=== PATIENT | male | born 1950 | race Caucasian/White ===

== ENCOUNTER 2023-11-21 13:43 | Inpatient (IN) | payer MEDICARE, OTHER, SELFPAY ==
[2023-11-21] VITALS (8 sets, daily range): BP systolic 114–152; BP diastolic 62–95; BMI 28.9; BMI 30.4
--- NOTE | 2023-11-21 10:25 | ED.GENMED ---
History of Present Illness
General
Chief Complaint: Breathing Problem
Source: patient
Time Seen by Provider: 11/21/23 10:16
Travel History
Have you had any contact with someone who has COVID-19?: No
Do you have any symptoms of coronavirus? Fever > 100 degrees, chills, cough, shortness of breath, sore throat, loss of taste or smell, muscle aches, or headache?: Yes
Symptoms:: see note
History of Present Illness
History of Present Illness:
73-year-old male presents to the emergency room complaint of shortness of breath. Patient has history of COPD. Over the past few days he has been having increased wheezing and increased coughing. His cough is productive of mucus. He does see a
chef assistant. He awoke this morning with severe shortness of breath and struggling to breathe. He contacted his chef assistant who recommended he come to the emergency room. Patient does not believe that he had a fever. He denies any sick
contacts. No chest pain
Past History
Past History
ED Past Medical History: CAD, CVA, GERD, Hypercholesterolemia, IDDM, ND and Other (spinal stenosis, Vertigo, PNA)
ED Past Surgical History: Cardiac (Stents X 2); Negative Bowel resection (denies a bowel resection or 25' being removed. said that this did not happen)
Social History
Tobacco: Former smoker
Alcohol: None
Drug: None
Personal:
Living: with family
Phy Exam
Physical Exam
Physical Exam:
General: Awake, Alert, Oriented X3. Moderate increased work of breathing
Vitals: Tachypneic
Head: Atraumatic
Eyes: Pupils equal, EOMI
Throat: Airway intact, no exudates
Neck: Trachea midline
Lungs: Decreased breath sounds, expiratory wheezing bilaterally
Heart: Regular rate, no murmurs
Abd: Soft, Nontender, No pulsatile mass
Neuro: Nonfocal
Skin: Warm, dry, no rash
Extremities: pulses equal b/l, no edema
Scores
Heart Failure Risk
Heart Failure Risk Score: Not Applicable
Course
Orders/Labs/Results
Orders:
Orders
11/21/23 10:13
Ipratropium/Albuterol Sulfate [Duoneb] 3 ml .ROUTE .STK-MED ONE
11/21/23 10:18
CMP [Comprehensive Metabolic Panel] Urgent
COVID-19 Antigen Urgent
Source: Nasal Swab
Complete Blood Count/With Diff Urgent
Lactic Acid Urgent
Influenza A+B Rapid Molecular Urgent
JUAN M Source: Nasal Swab
Specimen Description:
11/21/23 10:24
CR Chest - 2 Views Urgent
Comment:
Reason For Exam: sob, productive cough
11/21/23 12:45
Ipratropium/Albuterol Sulfate [Duoneb] 3 ml INH R NOW ONE
11/21/23 12:46
Azithromycin 500 mg/250 ml [Zithromax Infusion] 500 mg in 250 ml IV NOW
Ipratropium/Albuterol Sulfate [Duoneb] 3 ml .ROUTE .STK-MED ONE
11/21/23 13:22
Admit/Transfer Patient As Directed
Co-Sign Provider:
Level of Care: Inpatient admission
Assign to:: Medical/Surgical
Physician / Group: sarwat long
Diagnosis: acute on chronic copd exac
Reason for Hospitalization: acute on chronic copd exac
Expected length of stay greater than two midnights?: Yes
ELOS- Estimated Length of Stay in days: 4
I certify the patient meets the requirements for IP care: Yes
Code Status As Directed
Resuscitation Status: Do not resuscitate
Reached after discussion with pt or family/Healthcare POA: Yes
Based on pt advanced directive or healthcare POA form: Yes
Decision communicated with: Per and patient also states on file here in hospital
DNR Bracelet Application ONCE
11/21/23 13:31
PULMONARY CONSULT Routine
Consulting Provider: Edgar Berger
Was physician already notified: Yes
Reason for consult: copd with bronchitis component
11/21/23 13:33
Add On- LAB Urgent
Tests Added?: troponin
11/21/23 13:45
Sputum Culture [Respiratory Culture/Gram Stain] Routine
JUAN M Source: Sputum
Specimen Description:
Date Specimen was Collected: 11/21/23
Time Specimen was Collected: 13:42
11/21/23 16:00
Troponin I Q6H
Ipratropium/Albuterol Sulfate [Duoneb] 3 ml INH R QID
11/21/23 16:30
Insulin Aspart Corrective Low [Novolog Flexpen-Low Resistance] See Protocol SC AC
insulin lispro [Humalog U-100 Insulin] 10 sliding scale dose SC AC
11/21/23 22:00
Troponin I Q6H
Abnormal Lab Results
11/21/23
10:18
RBC 4.51 L 10^6/uL
(4.70-6.10)
Hgb 12.1 L g/dL
(13.0-18.0)
Hct 38.3 L %
(39.0-52.0)
MCH 26.8 L pg
(27.0-31.0)
MCHC 31.6 L g/dL
(33.0-37.0)
MPV 11.0 H fL
(7.4-10.4)
Abs Immat Gran (auto) 0.1 H 10^3/uL
(0-0.05)
Absolute Eos (auto) 1.9 H 10^3/uL
(0-0.7)
Eosinophils % 19.8 H %
(0-6)
Glucose 237 H mg/dl
(70-99)
Lactic Acid 2.4 H mmol/L
(0.7-2.0)
11/21/23 10:18
11/21/23 10:18
Vital Signs
Initial and Last Documented VS:
Initial Vital Signs
Temp Pulse Resp Pulse Ox
97.5 F 92 21 94
11/21/23 10:11 11/21/23 10:11 11/21/23 10:11 11/21/23 10:11
Last Documented Vital Signs
Temp Pulse Resp BP Pulse Ox
97.5 F 94 22 133/84 96
11/21/23 10:11 11/21/23 15:00 11/21/23 15:00 11/21/23 13:00 11/21/23 12:00
MDM/Problems Addressed
Differential Diagnosis Includes:
pneumonia, copd exacerbation, acute bronchitis
MDM/Problems Addressed:
Patient presents with increasing shortness of breath. He does not use oxygen at home but does have hypoxia here requiring oxygen. Patient treated with nebs and steroids. He received Solu-Medrol in the prehospital setting. Patient feels mildly
better but still quite symptomatic he will require hospitalization for continued treatment of a COPD exacerbation.
Acute Exacerbation and/or Progression of Chronic Illness: COPD
*Pulse Oximetry
Patient hypoxic: yes
*Critical Care Note
Total Time (30-74mins, 75-104mins- exclusive of procedures): Not Applicable
Data Reviewed
Review of Other/Old Records Reveals: Progress Notes and Discharge Summary (From hospitalization here on August 16)
Patient Management
Social determinants of health affecting care: Living situation and Strong social support
ED Attending Note
-
Portions of this chart may have been created with voice recognition software.� Occasional wrong word or��sound alike� substitutions may have occurred due to the inherent limitations of voice recognition software.
Discharge Plan
Departure
Patient Disposition: Admit
Date of Disposition: 11/21/23
Time of Disposition: 12:47
Admit to: Med/Surg
Presentation/result/management discussed w/ accepting MD/DO: Hospitalist
Condition: Fair
Discharge Problem:
Asthma with COPD with exacerbation
Interventions
Interventions:
*Risk Screen - Suicide Last Done: 11/21/23 10:12
*General Assessment Last Done: 11/21/23 11:36
*Neglect/Abuse Screening Last Done: 11/21/23 10:12
ED- Fall Risk Assessment Last Done: 11/21/23 12:57
*ED COVID-19 Vaccine History Last Done: 11/21/23 10:16
ED- Cardiac Assessment Last Done: 11/21/23 11:08
ED- Pulmonary Assessment Last Done: 11/21/23 10:16
[2023-11-21 10:40] LABS: % Basophils 0.2 % (0-2); % Eosinophils 19.8 % (0-6); % Immature Granulocytes 0.5 % (0-0.5); % Lymphocytes 21.4 % (20.5-51.1); % Monocytes 5.6 % (1.7-9.3); % Neutrophils 52.5 % (42.2-75.2); Absolute Eosinophils 1.9 10^3/uL (0-0.7); Absolute Immature Granulocytes 0.1 10^3/uL (0-0.05); Absolute Monocytes 0.5 10^3/uL (0.1-0.6); Hematocrit 38.3 % (39.0-52.0); Hemoglobin 12.1 g/dL (13.0-18.0); Mean Corp Hgb Conc. 31.6 g/dL (33.0-37.0); Mean Corpuscular Hgb 26.8 pg (27.0-31.0); Mean Corpuscular Volume 84.9 fL (80.0-94.0); Nucleated Red Blood Cells % 0 % (-); Platelet Count 292 10^3/uL (130-400); Red Blood Cell Count 4.51 10^6/uL (4.70-6.10); Red Cell Dist. Width 14.5 % (11.5-14.5); White Blood Cell Count 9.5 10^3/uL (4.8-10.8)
[2023-11-21 10:54] LABS: ALT (SGPT) 18 U/L (0-50); AST (SGOT) 20 U/L (17-59); Albumin 4.2 g/dl (3.5-5.0); Alkaline Phosphatase 96 U/L (38-126); Blood Urea Nitrogen 12 mg/dl (9-20); Carbon Dioxide 26 mmol/L (22-30); Chloride 106 mmol/L (98-107); Estimated Creatinine Clearance 82 ml/min; Glucose 237 mg/dl (70-99); Lactic Acid 2.4 mmol/L (0.7-2.0); Potassium 3.7 mmol/L (3.5-5.1); Sodium 139 mmol/L (135-145); Total Bilirubin 0.7 mg/dl (0.2-1.3); eGFR > 60.00
[2023-11-21 10:56] LABS: COVID-19 Antigen Negative (Negative)
[2023-11-21] MEDS: DUONEB 3 ML INH ×3 (12:49→20:02)
[2023-11-21] MEDS: ZITHROMAX INFUSION 250 IV (12:55)
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
[2023-11-21 15:15] LABS: Troponin I < 0.012 ng/ml
[2023-11-21 16:07] LABS: Glucose - Point of Care 380 mg/dl (70-99)
[2023-11-21] MEDS: NOVOLOG FLEXPEN-LOW RESISTANCE 5 UNITS SC (16:38)
[2023-11-21 16:46] LABS: Troponin I < 0.012 ng/ml
[2023-11-21 17:09] LABS: Glucose - Point of Care 387 mg/dl (70-99)
--- NOTE | 2023-11-21 17:42 | CON.PUL ---
Consultation
Consultation Request
Date/Time Consultation Requested: 11/21/2023 - 133
Date/Time Consultation Performed: 11/21/2023 - 160
Requesting Provider: Judit BA
Performing Provider: Dr. Berger
Reason for Consultation: SOB
Medical History
-
Chief Complaint: SOB
History of Present Illness:
73-year-old male with a past medical history of COPD on Advair HFA 230mcg, DM type II, former tobacco use started, history of SHARA intolerant to CPAP who presents with shortness of breath. Patient recently saw me in the office on 11/15/2023 and he was
complaining of shortness of breath at that time. I stepped up his treatment by stopping his budesonide and startied Advair HFA 230mcg and I gave him a sample of Breztri. We also discussed biologic therapy with Dupixent/Fasenra/Nucala given his
history of significant eosinophilia. Blood work obtained here shows WBC 9.5, eosinophilia of 1900, and CXR showed no acute cardiopulmonary process. He was started on Solu-Medrol 40mg IV q8hr as well as DuoNebs and now pulmonary consulted for
further recommendations/management.
When I saw the patient he was in bed, in no acute distress, saying that he feels 'hot' after receiving his steroids. He wants to 'peel off his skin,' and he never felt like that normally. I asked if he felt this in the past when he received
steroids and he was unable to answer me. He currently feels anxious and is asking for something to help with this. He denies chest pain, headache, abdominal pain, fevers or chills.
PMHx: COPD, DM type II, history of CVA, former tobacco use disorder
PSHx: Metal judy in the right lower extremity, right hip pin placement, coronary stents (2022)
Past Medical History
Past Medical History: Other (above as per HPI)
Past Surgical History: Other (above as per HPI)
Social History
Tobacco: Former Smoker (Quit smoking in November 2022 with >60-ctvi-xhok history)
Alcohol: None
Drug: None
Family History
Family History: CAD (Father) and Diabetes (Mother)
Allergies / Home Medications
Allergies
Allergy/AdvReac Type Severity Reaction Status Date / Time
ciprofloxacin Allergy Shortness Verified 09/24/23 14:29
of Breath
lactase [From Dairy Aid] Allergy Anaphylaxis Verified 09/24/23 14:29
procaine [From Novocain] Allergy Shortness Verified 09/24/23 14:29
of Breath
Quinolones Allergy Shortness Verified 09/24/23 14:29
of Breath
Home Medications
Medication Instructions Recorded Confirmed Last Taken Type
cholecalciferol (vitamin D3) 50 2,000 unit PO DAILY Supplement 04/17/23 11/21/23 11/20/23 History
mcg (2,000 unit) tablet (Vitamin
D3)
icosapent ethyl 1 gram capsule 2 g PO BID High Cholesterol 04/17/23 11/21/23 11/20/23 History
(Vascepa)
pantoprazole 20 mg tablet,delayed 20 mg PO DAILY Gastrointestinal 04/17/23 11/21/23 11/20/23 History
release Issue
aspirin 81 mg chewable tablet 81 mg PO DAILY Blood Clot 04/18/23 11/21/23 11/20/23 History
Prevention/Tx
atorvastatin 80 mg tablet 80 mg PO HS High Cholesterol 04/18/23 11/21/23 11/20/23 History
metoprolol succinate 25 mg 25 mg PO DAILY #90 tabs 04/20/23 11/21/23 11/20/23 Rx
tablet,extended release 24 hr
ipratropium 0.5 mg-albuterol 3 mg 3 ml inhalation R Q4HPRN PRN 08/16/23 11/21/23 Unknown Rx
(2.5 mg base)/3 mL nebulization sob/wheezing 30 days #90 mL
soln
albuterol sulfate 90 mcg/actuation 2 puff inhalation R QIDPRN PRN sob 11/21/23 11/21/23 Unknown History
aerosol inhaler (ProAir HFA)
clopidogrel 75 mg tablet (Plavix) 75 mg PO DAILY 11/21/23 11/21/23 11/20/23 History
fluticasone propionate 230 2 puff inhalation R BID 11/21/23 11/21/23 11/20/23 History
mcg-salmeterol 21 mcg/actuation
HFA inhaler (Advair HFA)
insulin degludec 100 unit/mL (3 50 unit SC HS 11/21/23 11/21/23 11/20/23 History
mL) subcutaneous pen (Tresiba
FlexTouch U-100 insulin)
insulin lispro 100 unit/mL 10 - 12 sliding scale dose SC AC 11/21/23 11/21/23 Unknown History
subcutaneous solution (Humalog
U-100 Insulin)
Review of Systems
-
History Source: Patient
All other systems: Negative unless noted (12 point ROS performed and is negative unless mentioned above.)
Vitals / Labs / Diagnostic Testing
Vital Signs
Temp Pulse Resp BP Pulse Ox
97.5 F 93 28 133/84 96
11/21/23 10:11 11/21/23 16:30 11/21/23 16:30 11/21/23 13:00 11/21/23 12:00
Lab Data
11/21/23 10:18
11/21/23 10:18
Microbiology
11/21/23 13:45 Sputum Respiratory Culture - Final
11/21/23 13:45 Sputum Gram Stain - Final
11/21/23 10:18 Nasal Swab Influenza Types A & B (ALEM) - Final
Negative for Influenza A & B, NAAT
Negative results must be combined with clinical observations
and patient history.
Nucleic Acid Amplification test (NAAT)performed on the
[employer] platform.
Diagnostic Testing:
Physical Exam
-
HEENT: Normocephalic and Anicteric
Cardiovascular: S1/S2 and Peripheral Edema (negative)
Respiratory: Wheeze (bilaterally), Rales (negative), Rhonchi (negative) and Other (coarse BS heard bilaterally)
GI: Soft, Non Distended and Non Tender
Neurology: Awake and Alert
Skin: Warm and Dry
General: Comfortable and Chills (negative)
Assessment
-
Assessment: 73-year-old male with a past medical history of COPD on Advair HFA 230mcg, DM type II, former tobacco use started, history of SHARA intolerant to CPAP who presents with shortness of breath. Patient recently saw me in the office on
11/15/2023 and he was complaining of shortness of breath at that time. I stepped up his treatment by stopping his budesonide and startied Advair HFA 230mcg and I gave him a sample of Breztri. We also discussed biologic therapy with
Dupixent/Fasenra/Nucala given his history of significant eosinophilia. Blood work obtained here shows WBC 9.5, eosinophilia of 1900, and CXR showed no acute cardiopulmonary process. He was started on Solu-Medrol 40mg IV q8hr as well as DuoNebs and
now pulmonary consulted for further recommendations/management.
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
Impression:
#Acute COPD exacerbation with severe hypereosinophilia
#Lactic acidosis
#Elevated troponin - likely due to demand ischemia (neg x2)
#Former tobacco use disorder
#Anxiety
Plan:
- Continue systemic steroids and closely monitor BG with goal BG 140-180mg/dL
- Titrate O2 flow rate to maintain SpO2 >88% and <96%
- Trend lactate level until <2mmol/L
- Maintain MAP>65
- He needs triple therapy but he was getting bronchospasms with nebulized budesonide --> start Symbicort 160mcg and Spiriva with Albuterol QID
- If he becomes tachy then change albuterol --> xopenex
- Continue Azithromycin 250mg daily, and he should be DC'd home on this as well
- Once he is discharged, we need to initiate biologic therapy --> will try to initiate Nucala vs Fasenra given his severe hyper-eosinophilia
- Start prn ativan for anxiety; and start prn morphine for air hunger/dyspnea --> pt is adamant about getting this and he gets severe anxious episodes quit often
- Check IgE titer; trend eos (will likely go down to zero while on steroids)
- DVT ppx
Pulmonary service will continue to follow along.
Code Status: DNR
A high level of medical decision making was used for this encounter today.
Data:
CXR 11-21-2023 - compared to prior CXR from 09/24/2023
Impression: No significant change. No acute pulmonary process.
TTE 09-19-2023:
�Normal LV size with low normal systolic function.
�Left ventricular ejection fraction is 50-55% by visual assessment.
�Normal regional wall motion.
�Mild-moderate concentric left ventricular hypertrophy.
�Stage I diastolic dysfunction suggestive of abnormal relaxation.
�Normal right ventricular size and function.
�Mild mitral regurgitation.
�Compared to prior on April 18, 2023, LV function has improved and MR is now
�mild from moderate.
Outpatient [facility] Data:
�Chest x-ray 08/14/23.� No primary small opacification or�vascular congestion.
��������
��������CXR 09-24-2023:��
��������Impression:
1.� Mild chronic elevation of the anterior right hemidiaphragm
2.� No radiographic evidence for pneumonia, acute pulmonary edema or pleural effusion.�
PFT:
������ COMMENTS:�PFT 09/15/23- Post-BD FVC: 2.52L or 64% (+4% change with BD); Post-BD FEV1: 1.53 or 53% (+19% change with BD); Ratio 53 --> 61 with BD; TLC 5.14 or 78%, DLCO 74%; DLco/VA: 107%.�
LABS:
������ COMMENTS:�Absolute eosinophil count:
1100 (09/24/2023)
1300 (08/14/2023)
900 (04/23/2023)
[2023-11-21] MEDS: SOLU-MEDROL PF 40 MG IV (19:54)
[2023-11-21] MEDS: LOVENOX 40 MG SC (19:55)
[2023-11-21] MEDS: LIPITOR 80 MG PO (21:52)
[2023-11-21] MEDS: MORPHINE SULFATE 2 MG IV (21:52)
[2023-11-21 21:59] LABS: Glucose - Point of Care 406 mg/dl (70-99)
[2023-11-21 22:35] LABS: Glucose 435 mg/dl (70-99)
[2023-11-21 22:37] LABS: Troponin I < 0.012 ng/ml
[2023-11-21] MEDS: NOVOLOG FLEXPEN SC (22:48)
--- NOTE | 2023-11-21 22:48 | PTCARENOTE ---
Blood glucose drawn on patient at bedtime, result was 406. [employer] CHILD WELFARE MANAGER notified and venous blood draw done, result was 435. See MAR for intervention. Per [employer] CHILD WELFARE MANAGER, recheck blood glucose at 0300
[2023-11-21] MEDS: LANTUS 0.5 UNITS SC (23:05)
[2023-11-21] MEDS: NOVOLOG FLEXPEN 6 UNITS SC (23:13)
[2023-11-22] MEDS: SOLU-MEDROL PF 40 MG IV ×3 (01:15→21:06)
[2023-11-22 02:53] LABS: Glucose - Point of Care 317 mg/dl (70-99)
[2023-11-22] MEDS: NOVOLOG FLEXPEN 4 UNITS SC (03:08)
[2023-11-22 07:00] VITALS: BP 129/80
[2023-11-22] MEDS: DUONEB 3 ML INH ×2 (07:21→11:34)
[2023-11-22] MEDS: SYMBICORT 160/4.5 MCG INHALER 2 PUFF INH ×2 (07:21→19:13)
[2023-11-22] MEDS: SPIRIVA RESPIMAT 2.5 MCG INH ×2 (07:22→07:28)
[2023-11-22 08:29] LABS: Glucose - Point of Care 297 mg/dl (70-99)
[2023-11-22 08:30] LABS: % Basophils 0.1 % (0-2); % Eosinophils 0.1 % (0-6); % Immature Granulocytes 0.4 % (0-0.5); % Lymphocytes 10.3 % (20.5-51.1); % Monocytes 5.8 % (1.7-9.3); % Neutrophils 83.3 % (42.2-75.2); Absolute Immature Granulocytes 0.1 10^3/uL (0-0.05); Absolute Lymphocytes 1.3 10^3/uL (1.2-3.4); Absolute Monocytes 0.7 10^3/uL (0.1-0.6); Absolute Neutrophils 10.2 10^3/uL (1.4-6.5); Hematocrit 34.7 % (39.0-52.0); Hemoglobin 11.1 g/dL (13.0-18.0); Mean Corpuscular Hgb 26.3 pg (27.0-31.0); Mean Corpuscular Volume 82.2 fL (80.0-94.0); Nucleated Red Blood Cells % 0 % (-); Platelet Count 292 10^3/uL (130-400); Red Blood Cell Count 4.22 10^6/uL (4.70-6.10); Red Cell Dist. Width 13.9 % (11.5-14.5); White Blood Cell Count 12.3 10^3/uL (4.8-10.8)
--- NOTE | 2023-11-22 08:33 | W.PN.PUL3 ---
Today's Communication / Plan
-
Continue Solu-merol --> wean down to 40mg IV q12hr today
Continue triple inhaler therapy with albuterol QID
Follow up respiratory Cx (collected 11/20)
Start tessalon perles concomitantly with mucinex to help make his cough more efficient as he gets frequent severe coughing spells
We will continue to follow along
Assessment
-
Assessment: 73-year-old male with a past medical history of COPD on Advair HFA 230mcg, DM type II, former tobacco use started, history of SHARA intolerant to CPAP who presents with shortness of breath. Patient recently saw me in the office on
11/15/2023 and he was complaining of shortness of breath at that time. I stepped up his treatment by stopping his budesonide and startied Advair HFA 230mcg and I gave him a sample of Breztri. We also discussed biologic therapy with
Dupixent/Fasenra/Nucala given his history of significant eosinophilia. Blood work obtained here shows WBC 9.5, eosinophilia of 1900, and CXR showed no acute cardiopulmonary process. He was started on Solu-Medrol 40mg IV q8hr as well as DuoNebs and
now pulmonary consulted for further recommendations/management.
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
Impression:
#Acute COPD exacerbation with hypereosinophilia
#Lactic acidosis - resolved
#Former tobacco use disorder
#Anxiety
Plan:
- Continue systemic steroids and closely monitor BG with goal BG 140-180mg/dL --> I will lower his solu-medrol today to 40mg IV q12hr
- Titrate O2 flow rate to maintain SpO2 >88% and <96%
- Maintain MAP>65
- He needs triple inhaler therapy; would want to give nebulized bronchodilators + ICS but he was getting bronchospasms with nebulized budesonide --> continue Symbicort 160mcg and Spiriva with Albuterol QID, and once he is discharged then willl try
to continue similar regimen - he already has Advair HFA, so can contiue that, and we can start Spiriva respimat 2.5mcg/act on discharge and change his DuoNebs to Nebulized Albuterol QID
- If he becomes tachy then change albuterol --> xopenex
- Continue Azithromycin 250mg daily, and he should be DC'd home on this as well
- Once he is discharged, we need to initiate biologic therapy --> will try to initiate Nucala vs Fasenra given his severe hyper-eosinophilia --> I will arrange this through my office
- Continue prn ativan for anxiety and prn morphine for air hunger/dyspnea --> pt is adamant about getting this and he gets severe anxious episodes quite often, although today he appears much less anxious c/t yesterday
- Follow up IgE titer; trend eos (down to zero s/p steroids)
- DVT ppx: LMWH
Pulmonary service will continue to follow along.
Code Status: DNR
A high level of medical decision making was used for this encounter today.
Data:
CXR 11-21-2023 - compared to prior CXR from 09/24/2023
Impression: No significant change. No acute pulmonary process.
TTE 09-19-2023:
�Normal LV size with low normal systolic function.
�Left ventricular ejection fraction is 50-55% by visual assessment.
�Normal regional wall motion.
�Mild-moderate concentric left ventricular hypertrophy.
�Stage I diastolic dysfunction suggestive of abnormal relaxation.
�Normal right ventricular size and function.
�Mild mitral regurgitation.
�Compared to prior on April 18, 2023, LV function has improved and MR is now
�mild from moderate.
Outpatient [facility] Data:
�Chest x-ray 08/14/23.� No primary small opacification or�vascular congestion.
��������
��������CXR 09-24-2023:��
��������Impression:
1.� Mild chronic elevation of the anterior right hemidiaphragm
2.� No radiographic evidence for pneumonia, acute pulmonary edema or pleural effusion.�
PFT:
������ COMMENTS:�PFT 09/15/23- Post-BD FVC: 2.52L or 64% (+4% change with BD); Post-BD FEV1: 1.53 or 53% (+19% change with BD); Ratio 53 --> 61 with BD; TLC 5.14 or 78%, DLCO 74%; DLco/VA: 107%.�
LABS:
������ COMMENTS:�Absolute eosinophil count:
1100 (09/24/2023)
1300 (08/14/2023)
900 (04/23/2023)
Subjective Data
-
Date of Service:
Date of Service: November 22, 2023
Chief Complaint: Pulmonary Follow Up
Subjective:
Patient seen and evaluated this morning. He looks much better today. Eosinophil count now down to 0 while on IV steroids. at bedside and I answered all of her and the patient's questions. She brought in his home medications for his COPD,
including nebulized DuoNebs, budesonide and Advair HFA. He says that he feels good taking the DuoNebs 4 times a day. He currently denies chest pain, headache, fevers or chills. He was moved out of his room last night as his neighbor had diarrhea
(suspect that he had concerns for C. difficile infection). He occasionally has coughing spells but it is frequently a dry cough.
Review of Systems
General: Other (12 point ROS performed and is negative unless mentioned above.)
Objective Data
Data Reviewed
Vital Signs / I&O / Oxygen:
Vital Signs
Temp Pulse Resp BP Pulse Ox
97.5 F 89 20 129/80 91
11/22/23 07:00 11/22/23 11:36 11/22/23 11:36 11/22/23 07:00 11/22/23 11:36
Intake and Output
11/21/23 11/22/2311/22/24
06:59 06:59 06:59
Intake Total 480 / 480
Balance 480 / 480
SaO2 91
Nasal Cannula flow liters per 2
minute
Physical Exam
General: Respiratory Distress (negative) and Comfortable
HEENT: Normocephalic and Anicteric
Cardiovascular: S1-S2 and Peripheral Edema (negative)
Respiratory: Wheeze (negative), Crackles (negative), Rhonchi (negative), Accessory Resp Muscle Use (negative) and Other (Coarse breath sounds bilaterally)
GI: Soft, Non Distended and Non Tender
Neurology: AO x 3
Skin: Warm and Dry
Labs/Micro/Reports
Lab Data
11/22/23 08:07
11/22/23 08:07
Microbiology
11/22/23 01:24 Nasal Swab Influenza Types A & B (ALEM) - Final
Negative for Influenza A & B, NAAT
Negative results must be combined with clinical observations
and patient history.
Nucleic Acid Amplification test (NAAT)performed on the
[employer] platform.
11/21/23 13:45 Sputum Respiratory Culture - Final
11/21/23 13:45 Sputum Gram Stain - Final
11/21/23 10:18 Nasal Swab Influenza Types A & B (ALEM) - Final
Negative for Influenza A & B, NAAT
Negative results must be combined with clinical observations
and patient history.
Nucleic Acid Amplification test (NAAT)performed on the
[employer] platform.
[2023-11-22 08:47] LABS: Lactic Acid 1.8 mmol/L (0.7-2.0)
[2023-11-22 09:07] LABS: Blood Urea Nitrogen 17 mg/dl (9-20); Calcium 9.3 mg/dl (8.4-10.2); Carbon Dioxide 25 mmol/L (22-30); Chloride 103 mmol/L (98-107); Estimated Creatinine Clearance 92 ml/min; Glucose 313 mg/dl (70-99); HDL Cholesterol 39 mg/dl; LDL Cholesterol, Calculated 74 mg/dl; Potassium 4.1 mmol/L (3.5-5.1); Sodium 137 mmol/L (135-145); Total Cholesterol 132 mg/dl (50-199); Triglyceride 98 mg/dl (10-149); Very Low Density Lipoprotein 19 mg/dl (0-30); eGFR > 60.00
[2023-11-22] MEDS: NOVOLOG FLEXPEN-LOW RESISTANCE 3 UNITS SC (09:15)
[2023-11-22] MEDS: LOW STRENGTH ASPIRIN 81 MG PO (09:15)
[2023-11-22] MEDS: NOVOLOG FLEXPEN 10 UNITS SC ×3 (09:15→18:27)
[2023-11-22] MEDS: PLAVIX 75 MG PO (09:15)
[2023-11-22] MEDS: VITAMIN D3 (cholecalciferol) 50 MCG PO (09:16)
[2023-11-22] MEDS: PROTONIX 20 MG PO (09:16)
[2023-11-22] MEDS: TOPROL XL 25 MG PO (09:16)
[2023-11-22] MEDS: ZITHROMAX 250 MG PO (09:21)
[2023-11-22 11:30] LABS: Glucose - Point of Care 396 mg/dl (70-99)
[2023-11-22] MEDS: VENTOLIN NEBULES INH (11:45)
[2023-11-22 12:05] VITALS: BP 130/73; O2SAT 94
[2023-11-22 12:07] VITALS: BP 138/73; PULSE 101; O2SAT 94
[2023-11-22] MEDS: NOVOLOG FLEXPEN-LOW RESISTANCE 5 UNITS SC ×2 (13:13→18:27)
[2023-11-22] MEDS: MORPHINE SULFATE 2 MG IV (13:19)
[2023-11-22 13:20] LABS: Glycohemoglobin (HgbA1c) 10.5 % (4.0-5.6)
[2023-11-22 15:00] VITALS: BP 147/72
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
[2023-11-22] MEDS: VENTOLIN NEBULES 2.5 MG INH ×2 (15:21→19:13)
--- NOTE | 2023-11-22 17:04 | PTCARENOTE ---
TT To Business Transformation Analyst She Roberts on behalf of Dr. Hanson for consult request for Diabetes Education.
[2023-11-22 18:18] LABS: Glucose - Point of Care 357 mg/dl (70-99)
[2023-11-22] MEDS: LOVENOX 40 MG SC (18:26)
[2023-11-22] MEDS: LANTUS 0.5 UNITS SC (21:05)
[2023-11-22] MEDS: LIPITOR 80 MG PO (21:06)
[2023-11-22] MEDS: MUCINEX 1200 MG PO (21:06)
[2023-11-22 21:16] LABS: Glucose - Point of Care 284 mg/dl (70-99)
[2023-11-22] MEDS: ATIVAN 0.5 MG PO (23:04)
[2023-11-22 23:22] VITALS: BP 138/80
[2023-11-23 06:00] VITALS: BMI 30.3
[2023-11-23 07:00] VITALS: BP 125/62
[2023-11-23] MEDS: SPIRIVA RESPIMAT 2.5 MCG 2 PUFF INH (08:01)
[2023-11-23] MEDS: VENTOLIN NEBULES 2.5 MG INH ×3 (08:01→15:28)
[2023-11-23] MEDS: SYMBICORT 160/4.5 MCG INHALER 2 PUFF INH (08:01)
[2023-11-23 08:09] LABS: Glucose - Point of Care 254 mg/dl (70-99)
[2023-11-23] MEDS: NOVOLOG FLEXPEN-LOW RESISTANCE 3 UNITS SC (08:55)
[2023-11-23] MEDS: NOVOLOG FLEXPEN 10 UNITS SC (08:56)
[2023-11-23] MEDS: MUCINEX 1200 MG PO (08:57)
[2023-11-23] MEDS: PROTONIX 20 MG PO (08:57)
[2023-11-23] MEDS: VITAMIN D3 (cholecalciferol) 50 MCG PO (08:57)
[2023-11-23] MEDS: SOLU-MEDROL PF 40 MG IV (08:57)
[2023-11-23] MEDS: TOPROL XL 25 MG PO (08:57)
[2023-11-23] MEDS: PLAVIX 75 MG PO (08:57)
[2023-11-23] MEDS: LOW STRENGTH ASPIRIN 81 MG PO (08:57)
[2023-11-23] MEDS: ZITHROMAX 250 MG PO (08:57)
[2023-11-23 09:06] LABS: % Basophils 0.1 % (0-2); % Immature Granulocytes 0.7 % (0-0.5); % Lymphocytes 10.4 % (20.5-51.1); % Monocytes 4.3 % (1.7-9.3); % Neutrophils 84.5 % (42.2-75.2); Absolute Immature Granulocytes 0.1 10^3/uL (0-0.05); Absolute Lymphocytes 1.7 10^3/uL (1.2-3.4); Absolute Monocytes 0.7 10^3/uL (0.1-0.6); Absolute Neutrophils 13.4 10^3/uL (1.4-6.5); Hematocrit 32.3 % (39.0-52.0); Hemoglobin 10.7 g/dL (13.0-18.0); Mean Corp Hgb Conc. 33.1 g/dL (33.0-37.0); Mean Corpuscular Hgb 26.9 pg (27.0-31.0); Mean Corpuscular Volume 81.2 fL (80.0-94.0); Nucleated Red Blood Cells % 0 % (-); Platelet Count 322 10^3/uL (130-400); Red Blood Cell Count 3.98 10^6/uL (4.70-6.10); Red Cell Dist. Width 13.9 % (11.5-14.5); White Blood Cell Count 15.9 10^3/uL (4.8-10.8)
--- NOTE | 2023-11-23 09:08 | W.PN.PUL3 ---
Today's Communication / Plan
-
Continue systemic steroids --> weaned down Solu-merol to 40mg IV q12hr yesterday
Ok to start PO prednisone today [facility] ept being DC'd home, starting at 50mg and reducing by 10mg every 5th day until off, allowing ample time before pt start biologic treatment
DC on Wixela and DuoNebs QID
Follow up respiratory Cx (collected 11/20)
Continue mucinex
Patient is stable for discharge home. Pulmonary service will now sign off. Please re-consult if there are any questions/concerns, or if pt's respiratory status deteriorates. I will arrange for outpatient office follow up.
Assessment
-
Assessment: 73-year-old male with a past medical history of COPD on Advair HFA 230mcg, DM type II, former tobacco use started, history of SHARA intolerant to CPAP who presents with shortness of breath. Patient recently saw me in the office on
11/15/2023 and he was complaining of shortness of breath at that time. I stepped up his treatment by stopping his budesonide and startied Advair HFA 230mcg and I gave him a sample of Breztri. We also discussed biologic therapy with
Dupixent/Fasenra/Nucala given his history of significant eosinophilia. Blood work obtained here shows WBC 9.5, eosinophilia of 1900, and CXR showed no acute cardiopulmonary process. He was started on Solu-Medrol 40mg IV q8hr as well as DuoNebs and
now pulmonary consulted for further recommendations/management.
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
Impression:
#Acute COPD exacerbation with hypereosinophilia - eosinophils down to zero with steroids
#Lactic acidosis - resolved
#Former tobacco use disorder
#Anxiety
Plan:
- Continue systemic steroids and closely monitor BG with goal BG 140-180mg/dL --> on 11/21 I lowered his solu-medrol today to 40mg IV q12hr --> it is ok to reduce steroids to PO prednisone today, starting at 50mg, and reduce by 10mg every 5th day
until off. This will allow ample time to get biologic therapy set up as an outpatient with a risk for repeat exacerbation.
- Titrate O2 flow rate to maintain SpO2 >88% and <96%
- Maintain MAP>65
- He needs triple inhaler therapy; would want to give nebulized bronchodilators + ICS but he was getting bronchospasms with nebulized budesonide --> while inpatient continue Symbicort 160mcg and Spiriva with Albuterol QID, and once he is discharged
then will try to continue similar regimen - he already has Advair HFA, so can continue that, and resume DuoNebs QID. In office, I will try to start LAMA with Spiriva respimat 2.5mcg/act on discharge and change his DuoNebs to Nebulized Albuterol
QID; I do not want to risk an issue with his medications and insurance in this period between discharge and office follow up, hence doing wixela and duonebs, two medications the pt already has, is best option at this point.
- Continue Azithromycin 250mg daily, and he should be DC'd home on this as well
- Once he is discharged, we need to initiate biologic therapy --> will try to initiate Nucala vs Fasenra given his severe hyper-eosinophilia --> I will arrange this through my office
- Continue prn ativan for anxiety and prn morphine for air hunger/dyspnea --> pt is adamant about getting this and he gets severe anxious episodes quite often, although today he appears much less anxious c/t yesterday
- Follow up IgE titer; trend eos (down to zero s/p steroids)
- DVT ppx: LMWH
Patient is stable for discharge home. Pulmonary service will now sign off. Thank you for allowing us to be involved in the care of this patient. Please re-consult if there are any questions/concerns, or if pt's respiratory status deteriorates.
I will arrange for outpatient office follow up.
Code Status: DNR
A moderate level of medical decision making was used for this encounter today.
Data:
CXR 11-21-2023 - compared to prior CXR from 09/24/2023
Impression: No significant change. No acute pulmonary process.
TTE 09-19-2023:
�Normal LV size with low normal systolic function.
�Left ventricular ejection fraction is 50-55% by visual assessment.
�Normal regional wall motion.
�Mild-moderate concentric left ventricular hypertrophy.
�Stage I diastolic dysfunction suggestive of abnormal relaxation.
�Normal right ventricular size and function.
�Mild mitral regurgitation.
�Compared to prior on April 18, 2023, LV function has improved and MR is now
�mild from moderate.
Outpatient [facility] Data:
�Chest x-ray 08/14/23.� No primary small opacification or�vascular congestion.
��������
��������CXR 09-24-2023:��
��������Impression:
1.� Mild chronic elevation of the anterior right hemidiaphragm
2.� No radiographic evidence for pneumonia, acute pulmonary edema or pleural effusion.�
PFT:
������ COMMENTS:�PFT 09/15/23- Post-BD FVC: 2.52L or 64% (+4% change with BD); Post-BD FEV1: 1.53 or 53% (+19% change with BD); Ratio 53 --> 61 with BD; TLC 5.14 or 78%, DLCO 74%; DLco/VA: 107%.�
LABS:
������ COMMENTS:�Absolute eosinophil count:
1100 (09/24/2023)
1300 (08/14/2023)
900 (04/23/2023)
Subjective Data
-
Date of Service:
Date of Service: November 23, 2023
Chief Complaint: Pulmonary Follow Up
Subjective:
Pt seen today and evaluated at bedside. He feels 'very good' today, and is eager to go home. No acute events reported from overnight. Received ativan last night for sleep. He said that overnight he went to the bathroom and everything was 'blue';
his vision is back to normal today, although he does say that he is 'basically blind.' He denies chest pain, POPE, abd pain, N/V/f/c.
Review of Systems
General: Other (negative unless mentioned above in HPI)
Objective Data
Data Reviewed
Vital Signs / I&O / Oxygen:
Vital Signs
Temp Pulse Resp BP Pulse Ox
97.4 F 80 16 125/62 95
11/23/23 07:00 11/23/23 11:16 11/23/23 11:16 11/23/23 07:00 11/23/23 11:16
Intake and Output
11/22/23 11/23/23 11/24/23
06:59 06:59 06:59
Intake Total 480 / 480
Output Total 250 / 250
Balance 480 / 480 -250 / -250
SaO2 95
Nasal Cannula flow liters per 2
minute
Physical Exam
General: Respiratory Distress (negative), Comfortable and Chills (negative)
HEENT: Normocephalic and Anicteric
Cardiovascular: S1-S2 and Peripheral Edema (negative)
Respiratory: Wheeze (negative), Crackles (negative), Rhonchi (negative), Accessory Resp Muscle Use (negative) and Other (Coarse breath sounds bilaterally (albeit improved))
GI: Soft, Non Distended and Non Tender
Neurology: AO x 3 and Tremors (negative)
Skin: Warm and Dry
Labs/Micro/Reports
Lab Data
11/23/23 08:29
11/23/23 08:29
Microbiology
11/22/23 01:24 Nasal Swab Influenza Types A & B (ALEM) - Final
Negative for Influenza A & B, NAAT
Negative results must be combined with clinical observations
and patient history.
Nucleic Acid Amplification test (NAAT)performed on the
[employer] platform.
11/21/23 13:45 Sputum Respiratory Culture - Final
11/21/23 13:45 Sputum Gram Stain - Final
11/21/23 10:18 Nasal Swab Influenza Types A & B (ALEM) - Final
Negative for Influenza A & B, NAAT
Negative results must be combined with clinical observations
and patient history.
Nucleic Acid Amplification test (NAAT)performed on the
[employer] platform.
[2023-11-23 09:28] LABS: Blood Urea Nitrogen 23 mg/dl (9-20); Calcium 9.1 mg/dl (8.4-10.2); Carbon Dioxide 27 mmol/L (22-30); Chloride 101 mmol/L (98-107); Estimated Creatinine Clearance 92 ml/min; Glucose 258 mg/dl (70-99); Potassium 4.1 mmol/L (3.5-5.1); Sodium 136 mmol/L (135-145); eGFR > 60.00
--- NOTE | 2023-11-23 10:00 | PN.DE.MGMTRT ---
Insulin Management
- -
11/23/2023 Diabetes Management Consult
Patient admitted 11/20 with acute exacerbation of COPD. PMH includes CAD, CVA, GERD, HCL, diabetes, OR, chronic HFrEF. Prior to admission was taking Tresiba 50 units @ HS, Humalog 10 to 12 units AC. A1C on admission 10.5%, CR .8, eGFR >60.
Patient is awake, alert and oriented and able to discuss his home diabetes regimen. He does have a DexCom G6 for glucose management at home. Patient feels his A1C is elevated due to recent steroids.
Fasting glucose this AM 254, will increase hs lantus to 54 units. AC novolog was 10 units yesterday, glucose range 357 to 396 requiring 5 units corrective insulin. Will increase AC novolog to 14 units, continue low corrective insulin. Will follow.
Diabetes History
- -
Type of Diabetes: 2 requiring insulin
Pre-Admission Diabetes Regimen
11/23/23
08:29
Creatinine 0.8
Lab Results
Hemoglobin A1c 10.5 % (4.0-5.6) H 11/22/23 08:07
Insulin Pump Settings
IP Diabetes Regimen
11/22/23 11/22/23 11/22/23
11:27 18:16 21:15
Glucose
POC Glucose 396 H 357 H 284 H
11/23/23 11/23/23
08:07 08:29
Glucose 258 H
POC Glucose 254 H
Patient Education
[2023-11-23 11:41] LABS: Glucose - Point of Care 371 mg/dl (70-99)
--- NOTE | 2023-11-23 11:44 | CM ---
Addendum entered by Kayli Morris 11/23/23 13:24:
IMM completed.
Patient has a nebulizer at home.
spouse will transport.
Original Note:
Patient seen bedside.
IA completed.
Patient lives with spouse in a 1 story home.
Patient has WC and cane.
Patient independent prior to admission.
Patient does not drive. patient has not had VN in the past.
Patient has been to skilled rehab at [facility] in the past.
Pharmacy: [facility]
PCP: Dr Daniel
Plan: home, possible outpatient pulmonary rehab.
[2023-11-23] MEDS: NOVOLOG FLEXPEN-LOW RESISTANCE 5 UNITS SC (12:04)
[2023-11-23] MEDS: NOVOLOG FLEXPEN 14 UNITS SC (12:05)
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
--- NOTE | 2023-11-23 12:45 | W.DS.TRANS ---
DC Summary - [employer]
-
Discharge Instructions:
Discharge Diagnosis/Procedures COPD v COPD/Asthma Overlap
Diet Low Cholesterol,Low Fat,Diabetic, Carb
Controlled
Activity As tolerated
Blood Work cbc in 3-5 days
Instructions:
Stand-Alone Forms:
Changes to Home Medications: Yes
Discharge Medications:
DC Medications w/original date entered in [employer]
cholecalciferol (vitamin D3) 50 mcg (2,000 unit) tablet (Vitamin D3) 2,000 unit PO DAILY Supplement 04/17/23
icosapent ethyl 1 gram capsule (Vascepa) 2 g PO BID High Cholesterol 04/17/23
pantoprazole 20 mg tablet,delayed release 20 mg PO DAILY Gastrointestinal Issue 04/17/23
aspirin 81 mg chewable tablet 81 mg PO DAILY Blood Clot Prevention/Tx 04/18/23
atorvastatin 80 mg tablet 80 mg PO HS High Cholesterol 04/18/23
metoprolol succinate 25 mg tablet,extended release 24 hr 25 mg PO DAILY #90 tabs 04/20/23
albuterol sulfate 90 mcg/actuation aerosol inhaler (ProAir HFA) 2 puff inhalation R QIDPRN PRN sob 11/21/23
clopidogrel 75 mg tablet (Plavix) 75 mg PO DAILY Blood Clot Prevention/Tx 11/21/23
fluticasone propionate 230 mcg-salmeterol 21 mcg/actuation HFA inhaler (Advair HFA) 2 puff inhalation R BID Lung/Breathing Issues 11/21/23
azithromycin 250 mg tablet 250 mg PO DAILY 14 days #14 tabs 11/23/23
benzonatate 200 mg capsule 200 mg PO BID PRN Cough #30 caps 11/23/23
insulin degludec 100 unit/mL (3 mL) subcutaneous pen (Tresiba FlexTouch U-100 insulin) 54 unit (0.54 mL) SC HS Diabetes #0 mL 11/23/23
insulin lispro 100 unit/mL subcutaneous solution (Humalog U-100 Insulin) 14 sliding scale dose SC AC Diabetes #0 mL 11/23/23
ipratropium 0.5 mg-albuterol 3 mg (2.5 mg base)/3 mL nebulization soln 3 ml inhalation Q6H sob/wheezing 30 days #90 mL 11/23/23
prednisone 10 mg tablet See Rx Instructions .Route .COMPLEX #80 tabs 11/23/23
tiotropium bromide 2.5 mcg/actuation mist for inhalation (Spiriva Respimat) 2 puff inhalation R DAILY #4 grams 11/23/23
Home Medication Changes
azithromycin 250 mg tablet 250 mg PO DAILY 14 days #14 tabs 11/23/23
benzonatate 200 mg capsule 200 mg PO BID PRN Cough #30 caps 11/23/23
insulin degludec 100 unit/mL (3 mL) subcutaneous pen (Tresiba FlexTouch U-100 insulin) 54 unit (0.54 mL) SC HS Diabetes #0 mL 11/23/23
insulin lispro 100 unit/mL subcutaneous solution (Humalog U-100 Insulin) 14 sliding scale dose SC AC Diabetes #0 mL 11/23/23
ipratropium 0.5 mg-albuterol 3 mg (2.5 mg base)/3 mL nebulization soln 3 ml inhalation Q6H sob/wheezing 30 days #90 mL 11/23/23
prednisone 10 mg tablet See Rx Instructions .Route .COMPLEX #80 tabs 11/23/23
tiotropium bromide 2.5 mcg/actuation mist for inhalation (Spiriva Respimat) 2 puff inhalation R DAILY #4 grams 11/23/23
Pending Results: No
[2023-11-23 12:49] VITALS: BP 126/72; BP 155/81; PULSE 86; O2SAT 96
[2023-11-23 15:15] VITALS: BP 126/65
--- NOTE | 2023-11-23 17:08 | PTCARENOTE ---
Pt DC'd to home. Pt given DC instructions and verbalized understanding.
[2023-11-23 19:31] LABS: IgE 263 kU/L (<=214)
== END 2023-11-23 16:50 | disposition home or self-care (01) | DRG 191 ==
LOC: 4 WEST ACU 13:43
PROVIDERS: Clinical Nurse Specialist Family Health; ADMITTING PHYSICIAN Internal Medicine; CONSULT PHYSICIAN Internal Medicine Critical Care Medicine; EMERGENCY PHYSICIAN Emergency Medicine; FAMILY PHYSICIAN Student in an Organized Health Care Education/Training Program
DX: J44.1 Chronic obstructive pulmonary disease with (acute) exacerbation (principal); E87.20 Acidosis, unspecified; I50.32 Chronic diastolic (congestive) heart failure; D72.10 Eosinophilia, unspecified; T38.0X5A Adverse effect of glucocorticoids and synthetic analogues, initial encounter; E11.9 Type 2 diabetes mellitus without complications; I11.0 Hypertensive heart disease with heart failure; I25.10 Atherosclerotic heart disease of native coronary artery without angina pectoris; E66.09 Other obesity due to excess calories; Z68.30 Body mass index [BMI] 30.0-30.9, adult; Z79.82 Long term (current) use of aspirin; Z87.891 Personal history of nicotine dependence; Z95.5 Presence of coronary angioplasty implant and graft; Z79.4 Long term (current) use of insulin; Z79.02 Long term (current) use of antithrombotics/antiplatelets
CPT/HCPCS: 71046; 80048; 80053; 80061; 82785; 82947; 82962; 83036; 83605; 84484; 85025; 87205; 87502; 87811; 94640; 96365; 97116; 97162; 97166; 99285

== ENCOUNTER 2023-12-26 11:09 | Outpatient (RCR) | payer MEDICARE, OTHER, SELFPAY ==
[2023-12-26 11:24] VITALS: BP 118/68
[2023-12-26] MEDS: NUCALA 1 MG SC (11:38)
== END 2023-12-26 13:59 | disposition home or self-care (01) ==
LOC: OID 11:09
PROVIDERS: ATTENDING PHYSICIAN Nurse Practitioner Adult Health; FAMILY PHYSICIAN Student in an Organized Health Care Education/Training Program
DX: J45.50 Severe persistent asthma, uncomplicated (principal); J44.9 Chronic obstructive pulmonary disease, unspecified; J44.89 Other specified chronic obstructive pulmonary disease; D72.10 Eosinophilia, unspecified
CPT/HCPCS: 96372; J2182

== ENCOUNTER 2024-01-23 11:29 | Outpatient (RCR) | payer MEDICARE, OTHER, SELFPAY ==
[2024-01-23 11:39] VITALS: BP 123/77
[2024-01-23] MEDS: NUCALA 1 MG SC (11:50)
== END 2024-01-24 09:38 | disposition home or self-care (01) ==
LOC: OID 11:29
PROVIDERS: ATTENDING PHYSICIAN Nurse Practitioner Adult Health; FAMILY PHYSICIAN Student in an Organized Health Care Education/Training Program
DX: J45.50 Severe persistent asthma, uncomplicated (principal); Z87.891 Personal history of nicotine dependence
CPT/HCPCS: 96372; J2182

== ENCOUNTER 2024-02-20 12:54 | Outpatient (RCR) | payer MEDICARE, OTHER, SELFPAY ==
[2024-02-20 13:14] VITALS: BP 125/72
[2024-02-20] MEDS: NUCALA 1 MG SC (13:19)
== END 2024-02-21 08:11 | disposition home or self-care (01) ==
LOC: OID 12:54
PROVIDERS: ATTENDING PHYSICIAN Nurse Practitioner Adult Health; FAMILY PHYSICIAN Student in an Organized Health Care Education/Training Program
DX: J45.50 Severe persistent asthma, uncomplicated (principal); J44.89 Other specified chronic obstructive pulmonary disease
CPT/HCPCS: 96372; J2182

== ENCOUNTER 2024-03-19 12:51 | Outpatient (RCR) | payer MEDICARE, OTHER, SELFPAY ==
[2024-03-19 13:10] VITALS: BP 129/78
[2024-03-19] MEDS: NUCALA 1 MG SC (13:22)
== END 2024-03-20 11:01 | disposition home or self-care (01) ==
LOC: OID 12:51
PROVIDERS: ATTENDING PHYSICIAN Nurse Practitioner Adult Health; FAMILY PHYSICIAN Student in an Organized Health Care Education/Training Program
DX: J45.50 Severe persistent asthma, uncomplicated (principal); Z87.891 Personal history of nicotine dependence
CPT/HCPCS: 96372; J2182

== ENCOUNTER 2024-04-16 13:42 | Outpatient (RCR) | payer MEDICARE, OTHER, SELFPAY ==
[2024-04-16 14:13] VITALS: BP 110/71
[2024-04-16] MEDS: NUCALA 1 MG SC (14:17)
== END 2024-04-17 07:56 | disposition home or self-care (01) ==
LOC: OID 13:42
PROVIDERS: ATTENDING PHYSICIAN Nurse Practitioner Adult Health; FAMILY PHYSICIAN Student in an Organized Health Care Education/Training Program; PRIMARYCARE PHYSICIAN Family Medicine
DX: J45.50 Severe persistent asthma, uncomplicated (principal); Z87.891 Personal history of nicotine dependence
CPT/HCPCS: 96372; J2182

== ENCOUNTER 2024-05-15 12:56 | Outpatient (RCR) | payer MEDICARE, OTHER, SELFPAY ==
[2024-05-15 13:22] VITALS: BP 137/87
[2024-05-15] MEDS: NUCALA 1 MG SC (13:26)
== END 2024-05-15 14:35 | disposition home or self-care (01) ==
LOC: OID 12:56
PROVIDERS: ATTENDING PHYSICIAN Nurse Practitioner Adult Health; FAMILY PHYSICIAN Student in an Organized Health Care Education/Training Program; PRIMARYCARE PHYSICIAN Family Medicine
DX: J45.50 Severe persistent asthma, uncomplicated (principal); J44.89 Other specified chronic obstructive pulmonary disease
CPT/HCPCS: 96372; J2182

== ENCOUNTER 2024-07-10 12:43 | Outpatient (RCR) | payer OTHER, SELFPAY ==
[2024-06-12 13:03] VITALS: BP 140/78
[2024-06-12] MEDS: NUCALA 1 MG SC (13:22)
[2024-07-10 13:14] VITALS: BP 113/65
[2024-07-10] MEDS: NUCALA 1 MG SC (13:23)
== END 2024-07-11 09:56 | disposition home or self-care (01) ==
LOC: OID 12:43
PROVIDERS: ATTENDING PHYSICIAN Nurse Practitioner Adult Health; FAMILY PHYSICIAN Student in an Organized Health Care Education/Training Program; PRIMARYCARE PHYSICIAN Family Medicine
DX: J45.50 Severe persistent asthma, uncomplicated (principal); J44.9 Chronic obstructive pulmonary disease, unspecified; D72.10 Eosinophilia, unspecified; Z87.891 Personal history of nicotine dependence
CPT/HCPCS: 96372; J2182

== ENCOUNTER 2024-09-10 13:32 | Outpatient (RCR) | payer OTHER, SELFPAY ==
[2024-08-15 13:46] VITALS: BP 119/62
[2024-08-15] MEDS: NUCALA 1 MG SC (14:00)
[2024-09-10 13:40] VITALS: BP 114/70
[2024-09-10] MEDS: NUCALA 1 MG SC (13:49)
== END 2024-09-11 14:23 | disposition home or self-care (01) ==
LOC: OID 13:32
PROVIDERS: ATTENDING PHYSICIAN Nurse Practitioner Adult Health; FAMILY PHYSICIAN Student in an Organized Health Care Education/Training Program; PRIMARYCARE PHYSICIAN Family Medicine
DX: J45.50 Severe persistent asthma, uncomplicated (principal); J44.9 Chronic obstructive pulmonary disease, unspecified; D72.10 Eosinophilia, unspecified; Z87.891 Personal history of nicotine dependence
CPT/HCPCS: 96372; J2182

== ENCOUNTER → 2024-09-27 13:16 | Outpatient (REF) | payer OTHER, SELFPAY | LOC: RCS 13:16 | PROVIDERS: ATTENDING PHYSICIAN Internal Medicine Cardiovascular Disease; FAMILY PHYSICIAN Family Medicine | DX: R06.02 Shortness of breath (principal) | CPT/HCPCS: 71046; 93306; 93880 ==

== ENCOUNTER 2024-10-08 13:38 | Outpatient (RCR) | payer OTHER, SELFPAY ==
[2024-10-08 13:48] VITALS: BP 107/65
[2024-10-08] MEDS: NUCALA 1 MG SC (13:58)
== END 2024-10-09 08:57 | disposition home or self-care (01) ==
LOC: OID 13:38
PROVIDERS: ATTENDING PHYSICIAN Nurse Practitioner Adult Health; FAMILY PHYSICIAN Student in an Organized Health Care Education/Training Program; PRIMARYCARE PHYSICIAN Family Medicine
DX: J45.50 Severe persistent asthma, uncomplicated (principal); J44.9 Chronic obstructive pulmonary disease, unspecified; D72.10 Eosinophilia, unspecified; Z87.891 Personal history of nicotine dependence
CPT/HCPCS: 96372; J2182

== ENCOUNTER 2024-10-09 07:01 | Day surgery (SDC) | payer OTHER, SELFPAY ==
[2024-10-05 12:26] VITALS: BMI 35.4
[2024-10-05 13:07] LABS: % Basophils 0.1 % (0-2); % Eosinophils 1.3 % (0-6); % Immature Granulocytes 0.5 % (0-0.5); % Lymphocytes 27.4 % (20.5-51.1); % Monocytes 5.1 % (1.7-9.3); % Neutrophils 65.6 % (42.2-75.2); Absolute Eosinophils 0.1 10^3/uL (0-0.7); Absolute Lymphocytes 2.3 10^3/uL (1.2-3.4); Absolute Monocytes 0.4 10^3/uL (0.1-0.6); Absolute Neutrophils 5.4 10^3/uL (1.4-6.5); Hematocrit 45.3 % (39.0-52.0); Hemoglobin 15.3 g/dL (13.0-18.0); Mean Corp Hgb Conc. 33.8 g/dL (33.0-37.0); Mean Corpuscular Volume 85.8 fL (80.0-94.0); Mean Platelet Volume 10.5 fL (7.4-10.4); Nucleated Red Blood Cells % 0 % (-); Platelet Count 218 10^3/uL (130-400); Red Blood Cell Count 5.28 10^6/uL (4.70-6.10); White Blood Cell Count 8.2 10^3/uL (4.8-10.8)
[2024-10-05 13:23] LABS: ALT (SGPT) 29 U/L (0-50); AST (SGOT) 21 U/L (17-59); Albumin 4.7 g/dl (3.5-5.0); Alkaline Phosphatase 93 U/L (38-126); Blood Urea Nitrogen 16 mg/dl (9-20); Calcium 9.5 mg/dl (8.4-10.2); Carbon Dioxide 27 mmol/L (22-30); Chloride 97 mmol/L (98-107); Estimated Creatinine Clearance 92 ml/min; Glucose 342 mg/dl (70-99); Potassium 4.4 mmol/L (3.5-5.1); Sodium 137 mmol/L (135-145); Total Bilirubin 0.6 mg/dl (0.2-1.3); Total Protein 7.5 g/dl (6.3-8.2); eGFR > 60.00
[2024-10-09] VITALS (16 sets, daily range): BP systolic 103–134; BP diastolic 70–88; BMI 33.2
[2024-10-09] MEDS: NSS 297 ML IV (07:45)
[2024-10-09 07:52] LABS: Glucose - Point of Care 295 mg/dl (70-99)
--- NOTE | 2024-10-09 14:39 | ITS.CL.PN ---
Ditcher Operator - Procedure Note
Procedure
Procedure Note:
CARDIAC CATHETERIZATION REPORT
Date of Procedure: 10/09/2024
Referring: Dr. Geovanny Cowan MD, PhD
Indication: worsening cardiomyopathy
PROCEDURE(S)
1. left heart catheterization
2. coronary angiography
ACCESS: 6F right radial artery (closure: radial band)
CATHETERS
1. 6F JR4
2. 6F JL3.5
MODERATE SEDATION: 25 minutes of moderate sedation was utilized. An independent nuclear medical tech was present to assist with and help manage the patient's level of consciousness and physiologic status.
ULTRASOUND GUIDED VASCULAR ACCESS (right radial artery): Ultrasound was utilized for vascular access. The vessel was visualized under ultrasound and noted to be patent. An image of the vessel was stored permanently in the patient's medical record.
Under direct ultrasound guidance, vascular access was obtained using a modified Seldinger technique and a 6 Portuguese sheath was placed.
HEMODYNAMIC DATA
LV 141/15 (EDP 25) mmHg
AO 148/91 (mean 115) mmHg
CORONARY ANGIOGRAPHY
Dominance: Left
LM: Large, normal
LAD: Large vessel giving rise to a moderate caliber diagonal branch and wrapping around the apex. There is a patent stent in the proximal LAD. There is moderate disease in the proximal aspect of the diagonal with YVETTE-3 flow. There are otherwise
mild luminal irregularities.
LCx: Large vessel giving rise to a small OM1, large OM2, large LPL, and moderate caliber LPDA. There is a widely patent stent in the proximal to mid circumflex jailing the OM2. There is otherwise mild nonobstructive disease.
RCA: Moderate vessel with previously documented total occlusion of the mid section.
RADIATION: dose 243 mGy; DAP 14 Gy*cm2; fluoroscopy time 2.3 min
CONCLUSIONS
1. coronary artery disease as described with no culprit lesion to explain patient's symptoms.
2. Elevated LV filling pressure with no aortic stenosis on hemodynamic pullback
RECOMMENDATIONS
1. expectant management after cardiac catheterization via right radial approach
2. aggressive secondary prevention of coronary artery disease
3. GDMT for heart failure with reduced ejection fraction. Will restart previously tolerated Jardiance and spironolactone.
Copy to: Dr. Valencia Pablo DO (PCP)
Signed: Geovanny Forbes MD, PhD
== END 2024-10-09 14:00 | disposition home or self-care (01) ==
LOC: CATH 07:01
PROVIDERS: ATTENDING PHYSICIAN Student in an Organized Health Care Education/Training Program; FAMILY PHYSICIAN Family Medicine
DX: I25.10 Atherosclerotic heart disease of native coronary artery without angina pectoris (principal); I42.9 Cardiomyopathy, unspecified; I11.0 Hypertensive heart disease with heart failure; I50.20 Unspecified systolic (congestive) heart failure; J44.9 Chronic obstructive pulmonary disease, unspecified; I25.2 Old myocardial infarction; E11.9 Type 2 diabetes mellitus without complications; Z79.82 Long term (current) use of aspirin; Z79.4 Long term (current) use of insulin; Z79.52 Long term (current) use of systemic steroids; Z79.01 Long term (current) use of anticoagulants; K21.9 Gastro-esophageal reflux disease without esophagitis; Z95.5 Presence of coronary angioplasty implant and graft
CPT/HCPCS: 99152; 99153; 36415; 76937; 80053; 82962; 85025; 93005; 93458; C1894; Q9967

== ENCOUNTER 2024-11-05 13:37 | Outpatient (RCR) | payer OTHER, SELFPAY ==
[2024-11-05 14:01] VITALS: BP 129/75
[2024-11-05] MEDS: NUCALA 1 MG SC (14:13)
[2024-11-05 14:59] LABS: Blood Urea Nitrogen 15 mg/dl (9-20); Calcium 9.1 mg/dl (8.4-10.2); Carbon Dioxide 25 mmol/L (22-30); Chloride 100 mmol/L (98-107); Glucose 350 mg/dl (70-99); Potassium 4.5 mmol/L (3.5-5.1); Sodium 135 mmol/L (135-145); eGFR > 60.00
== END 2024-11-09 23:59 | disposition home or self-care (01) ==
LOC: OID 13:37
PROVIDERS: Student in an Organized Health Care Education/Training Program; ATTENDING PHYSICIAN Nurse Practitioner Adult Health; FAMILY PHYSICIAN Student in an Organized Health Care Education/Training Program; PRIMARYCARE PHYSICIAN Family Medicine
DX: J45.50 Severe persistent asthma, uncomplicated (principal); J44.9 Chronic obstructive pulmonary disease, unspecified; D72.10 Eosinophilia, unspecified; Z87.891 Personal history of nicotine dependence
CPT/HCPCS: 36415; 80048; 96372; J2182

== ENCOUNTER 2024-11-13 10:47 | Emergency (ER) | payer OTHER, SELFPAY ==
[2024-11-13 10:55] VITALS: BP 115/66
[2024-11-13 11:01] LABS: Glucose - Point of Care 172 mg/dl (70-99)
[2024-11-13 11:41] LABS: % Basophils 0.2 % (0-2); % Eosinophils 1.5 % (0-6); % Immature Granulocytes 0.3 % (0-0.5); % Lymphocytes 25.4 % (20.5-51.1); % Monocytes 7.9 % (1.7-9.3); % Neutrophils 64.7 % (42.2-75.2); Absolute Eosinophils 0.1 10^3/uL (0-0.7); Absolute Lymphocytes 2.3 10^3/uL (1.2-3.4); Absolute Monocytes 0.7 10^3/uL (0.1-0.6); Hematocrit 45.4 % (39.0-52.0); Hemoglobin 15.9 g/dL (13.0-18.0); Mean Corpuscular Hgb 29.6 pg (27.0-31.0); Mean Corpuscular Volume 84.5 fL (80.0-94.0); Mean Platelet Volume 10.5 fL (7.4-10.4); Nucleated Red Blood Cells % 0 % (-); Platelet Count 200 10^3/uL (130-400); Red Blood Cell Count 5.37 10^6/uL (4.70-6.10); Red Cell Dist. Width 13.8 % (11.5-14.5); White Blood Cell Count 9.2 10^3/uL (4.8-10.8)
[2024-11-13 12:01] LABS: ALT (SGPT) 31 U/L (0-50); AST (SGOT) 22 U/L (17-59); Albumin 4.5 g/dl (3.5-5.0); Alkaline Phosphatase 77 U/L (38-126); Blood Urea Nitrogen 19 mg/dl (9-20); Carbon Dioxide 24 mmol/L (22-30); Chloride 102 mmol/L (98-107); Glucose 190 mg/dl (70-99); Potassium 4.5 mmol/L (3.5-5.1); Sodium 137 mmol/L (135-145); Total Protein 7.2 g/dl (6.3-8.2); eGFR > 60.00
[2024-11-13 12:06] LABS: Troponin I < 0.012 ng/ml
--- NOTE | 2024-11-13 13:59 | ED.GENMED ---
History of Present Illness
General
Chief Complaint: Blood Sugar Problem
Source: patient
Exam Limitations: none
Time Seen by Provider: 11/13/24 13:30
Nursing documentation reviewed up to this point in time: agreed with
History of Present Illness
History of Present Illness:
This is a 74-year-old male with past medical history of coronary artery disease, insulin dependent diabetes, vertigo, CVA presents emergency department today with concerns of low blood sugar and hyperglycemia. Patient reports that he has had right
thumb pain for the past few weeks and was going to see his PCP about today when they noted his blood pressure to be around 80/50. Of note, he was started on spironolactone by Dr. Forbes around a month and a half ago. They also noted that his sugar
was in the 300s. They advised him to report to emergency department. Here his blood sugar is 190 without intervention and his blood pressure is 115/66. Patient reports that he has been struggling with high blood sugars for the past few months and
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 Per triage note, PCP reports that patient has had increased weakness or patient reports that since his stroke and his heart attack, he states that he always feels weak. He denies
chest pain, shortness of breath, syncopal episodes, dizziness, lightheadedness. In regards to the thumb pain, patient states that it started a few days ago and states that occasionally he feels like it will click and get stuck. Denies any injury to
the area.
Past History
Past History
ED Past Medical History: CAD, CVA, GERD, Hypercholesterolemia, IDDM, [place] and Other (spinal stenosis, Vertigo, PNA)
ED Past Surgical History: Cardiac (Stents X 2); Negative Bowel resection (denies a bowel resection or 25' being removed. said that this did not happen)
Social History
Tobacco: Former smoker
Alcohol: None
Drug: None
Personal:
Living: with family
Review of Systems
Review of Systems
All Other Systems: ROS reviewed and negative except as documented in HPI and ROS
Phy Exam
Physical Exam
Physical Exam:
General: Patient is well appearing and in no acute distress; non-toxic
Skin: Warm and dry, no rashes or lesions. Brisk capillary refill.
Head: Normocephalic, atraumatic
Eyes: Sclera non-icteric. EOMs intact.
Cardiac: Regular rate and rhythm, no murmurs
Peripheral Vascular: No lower extremity swelling or edema
Pulm: Normal respiratory effort, no wheezes, rales, or rhonchi
Musculoskeletal: No tenderness to palpation of the right thumb, 5/5 strength of phalanges on the right, no palpable bony deformity
Neuro: CN II-XII intact, no focal neurologic deficits. Sensation intact.
Psychiatric: Appropriate mood and affect.
Course
Orders/Labs/Results
Orders:
Orders
11/13/24 10:58
Electrocardiogram (*1) Urgent
Reason for Study: Chest Pain
EKG- Treatment ONCE
11/13/24 11:18
Complete Blood Count/With Diff Urgent
Comprehensive Metabolic Panel Urgent
Troponin I Urgent
11/13/24 13:44
0.9% Sodium Chloride 500 ml [Nss] 500 ml IV BOLUS
CR Hand - Right Min 3 Views Urgent
Reason For Exam: right distal thumb pain and swelling
11/13/24 13:55
Orthostatic VS- Treatment ONCE
11/13/24 14:12
Bedside Glucose- Treatment ONCE
Abnormal Lab Results
11/13/24 11/13/24 11/13/24
10:59 11:18 14:36
MPV 10.5 H fL
(7.4-10.4)
Absolute Monos (auto) 0.7 H 10^3/uL
(0.1-0.6)
Glucose 190 H mg/dl
(70-99)
POC Glucose 172 H mg/dl 200 H mg/dl
(70-99) (70-99)
11/13/24 11:18
11/13/24 11:18
Vital Signs
Initial and Last Documented VS:
Initial Vital Signs
Temp Pulse Resp BP Pulse Ox
98.2 F 78 16 115/66 96
11/13/24 10:55 11/13/24 10:55 11/13/24 10:55 11/13/24 10:55 11/13/24 10:55
Last Documented Vital Signs
Temp Pulse Resp BP Pulse Ox
98 F 73 16 101/75 95
11/13/24 14:34 11/13/24 15:37 11/13/24 15:37 11/13/24 15:37 11/13/24 15:30
MDM/Problems Addressed
Differential Diagnosis Includes:
hyperglycemia, dysrhythmia, hyponatremia, orthostatic hypotension, medication related hypotension, sepsis
MDM/Problems Addressed:
74-year-old male male with past medical history of hyperlipidemia, coronary artery disease, CVA, diabetes on insulin presents emergency department today with concerns of generalized weakness for the past few months low blood pressure. In the office
today, his BP was 80/50. He states that he does not feel dizzy at this time. He was recently put on spironolactone around a month and a half ago. He is also sent because his blood sugar was in the 300s. Patient states it is usually in the 300s
and he has been dealing with resistant hyperglycemia. Here in emergency department, his blood sugar was 190 without any intervention. He states that he not take any insulin. In light of his low blood pressure and hyperglycemia, he is given a bag
of IV fluids. Patient states he feels well and feels at baseline. Did review case with patient's cardiology office on-call who recommends stopping the spironolactone at this time considering patient's hypotension and generalized weakness. Advised
patient to call the office for follow-up appointment. Patient stable for discharge.
*Pulse Oximetry
Patient hypoxic: no
*EKG
Interpreted by ED Provider?: Yes
EKG Intrepretation Date: 11/13/24
Interpretation: normal
Comparison EKG: changes noted (PVCs no longer present)
Heart Rate: 75
Rate: normal
Rhythm: sinus
[place]: normal axis
Interval: normal interval
QRS Pattern: normal QRS
*Critical Care Note
Total Time (30-74mins, 75-104mins- exclusive of procedures): Not Applicable
Data Reviewed
Review of Other/Old Records Reveals: Records (Reviewed cath report from 10/09/2024 patient was found to have coronary artery disease with patent stents) and Discharge Summary (Reviewed discharge summary from 11/24/2023 patient seen for COPD
exacerbation improved with IV steroids and was discharged home)
Source: patient and records
Patient Management
Escalation/DeEscalation of care consider admission/obs:
case reviewed with my attending pt stable for discharge
ED Attending Note
-
Portions of this chart may have been created with voice recognition software.� Occasional wrong word or��sound alike� substitutions may have occurred due to the inherent limitations of voice recognition software.
Discharge Plan
Departure
Patient Disposition: Home (Routine Discharge)
Date of Disposition: 11/13/24
Time of Disposition: 15:51
Patient with high blood pressure during this ER visit?: No
Condition: Good
Discharge Problem:
Low blood pressure, Generalized weakness
Instructions: Type 2 Diabetes (DC), Dealing with Low Blood Pressure from the Drugs You Take
Prescriptions:
No Action
cholecalciferol (vitamin D3) [Vitamin D3] 50 mcg (2,000 unit) Tablet
2,000 unit PO DAILY
icosapent ethyl [Vascepa] 1 gram Capsule
1 g PO BID
atorvastatin 80 mg tablet
80 mg PO HS
aspirin 81 MG tablet,chewable
81 mg PO DAILY
albuterol sulfate [ProAir HFA] 90 mcg/actuation Hfa Aerosol Inhaler
2 puff INHALATION R QIDPRN PRN (Reason: sob)
fluticasone propion-salmeterol [Advair HFA] 230-21 mcg/actuation Hfa Aerosol Inhaler
2 puff INHALATION R BID
insulin lispro [Humalog U-100 Insulin] 100 unit/mL solution
25 sliding scale dose SC AC
Incruse Ellipta 62.5 mcg/actuation Blister With Device
1 inh INHALATION DAILY
Nucala 100 mg Recon Soln
300 mg SC Q4W
pantoprazole 40 mg Tablet,Delayed Release (Dr/Ec)
40 mg PO DAILY
insulin degludec [Tresiba U-100 Insulin] 100 unit/mL Solution
80 unit SC HS
spironolactone 25 mg tablet
25 mg PO DAILY Qty: 90 5RF
Referrals:
Omar Matthews MD [Active] - Call in 1-3 days for appt
UNKNOWN - PT DOES,NOT KNOW [Family Provider] -
Activity Restrictions/Additional Instructions:
Please stop taking spironolactone, this may be contributing to your weakness and low blood pressures at home and in the office today. Please call your cardiology office to make a follow up appointment.
Please call your sanitary engineering teacher to make a follow up appointment regarding your high blood sugars.
PLEASE RETURN EMERGENCY DEPARTMENT SHOULD YOU DEVELOP CHEST PAIN, SHORTNESS OF BREATH, LIGHTHEADEDNESS, DIZZINESS, FAINTING SPELLS, HEADACHES, WEAKNESS ON ONE SIDE OF THE BODY VERSUS THE OTHER, DIFFICULTY SPEAKING, OR ANY OTHER SIGNS OR SYMPTOMS
CONCERNING TO YOU.
Interventions
Interventions:
*Risk Screen - Suicide Last Done: 11/13/24 10:55
*General Assessment Last Done: 11/13/24 14:30
*Neglect/Abuse Screening Last Done: 11/13/24 10:55
*ED- Fall Risk Assessment Last Done: 11/13/24 14:30
*ED COVID-19 Vaccine History Last Done: 11/13/24 14:30
*Nursing Disposition Last Done: 11/13/24 16:05
ED- Neurological Assessment Last Done: 11/13/24 14:30
Discharge Date and Time
Discharge Date/Time: 11/13/24 16:05
Print Language: BURUNDIAN
[2024-11-13 14:27] VITALS: BMI 31.9
[2024-11-13 14:31] VITALS: BP 116/86
[2024-11-13 14:37] LABS: Glucose - Point of Care 200 mg/dl (70-99)
[2024-11-13] MEDS: NSS 500 IV (14:39)
[2024-11-13 15:00] VITALS: BP 149/98
[2024-11-13 15:17] VITALS: BP 135/79
[2024-11-13 15:24] VITALS: BP 135/79; BP 164/106; BP 168/113; PULSE 70; PULSE 76; PULSE 81
[2024-11-13 15:37] VITALS: BP 101/75
== END 2024-11-13 16:05 | disposition home or self-care (01) ==
LOC: EMR 10:47
PROVIDERS: Emergency Medicine; EMERGENCY PHYSICIAN Emergency Medicine
DX: R53.1 Weakness (principal); R03.1 Nonspecific low blood-pressure reading; M79.644 Pain in right finger(s); I25.10 Atherosclerotic heart disease of native coronary artery without angina pectoris; E11.65 Type 2 diabetes mellitus with hyperglycemia; M48.00 Spinal stenosis, site unspecified; K21.9 Gastro-esophageal reflux disease without esophagitis; E78.00 Pure hypercholesterolemia, unspecified; M19.90 Unspecified osteoarthritis, unspecified site; I25.2 Old myocardial infarction; Z79.4 Long term (current) use of insulin; Z95.5 Presence of coronary angioplasty implant and graft; Z86.73 Personal history of transient ischemic attack (TIA), and cerebral infarction without residual deficits; Z87.891 Personal history of nicotine dependence; Z88.1 Allergy status to other antibiotic agents; Z91.011 Allergy to milk products; Z88.8 Allergy status to other drugs, medicaments and biological substances; Z91.018 Allergy to other foods
CPT/HCPCS: 99284; 96360; 73130; 80053; 82962; 84484; 85025; 93005

== ENCOUNTER 2024-12-03 13:42 | Outpatient (RCR) | payer OTHER, SELFPAY ==
[2024-12-03 14:03] VITALS: BP 105/83
[2024-12-03] MEDS: NUCALA 1 MG SC (14:15)
== END 2024-12-10 23:59 | disposition home or self-care (01) ==
LOC: OID 13:42
PROVIDERS: ATTENDING PHYSICIAN Nurse Practitioner Adult Health; FAMILY PHYSICIAN Family Medicine; PRIMARYCARE PHYSICIAN Family Medicine
DX: J45.50 Severe persistent asthma, uncomplicated (principal); J44.9 Chronic obstructive pulmonary disease, unspecified; D72.10 Eosinophilia, unspecified; Z87.891 Personal history of nicotine dependence
CPT/HCPCS: 96372; J2182

== ENCOUNTER 2024-12-31 13:39 | Outpatient (RCR) | payer OTHER, SELFPAY ==
[2024-12-31 13:58] VITALS: BP 128/71
[2024-12-31] MEDS: NUCALA 1 MG SC (14:13)
== END 2025-01-01 08:18 | disposition home or self-care (01) ==
LOC: OID 13:39
PROVIDERS: ATTENDING PHYSICIAN Nurse Practitioner Adult Health; FAMILY PHYSICIAN Family Medicine; PRIMARYCARE PHYSICIAN Family Medicine
DX: J45.50 Severe persistent asthma, uncomplicated (principal); J44.9 Chronic obstructive pulmonary disease, unspecified; D72.10 Eosinophilia, unspecified; Z87.891 Personal history of nicotine dependence
CPT/HCPCS: 96372; J2182

== ENCOUNTER 2025-01-01 10:24 | Emergency (ER) | payer OTHER, SELFPAY ==
[2025-01-01 10:37] VITALS: BP 128/80; BMI 34.4
[2025-01-01 10:42] VITALS: BP 128/80
[2025-01-01 11:00] VITALS: BP 118/59
[2025-01-01 11:21] LABS: ALT (SGPT) 21 U/L (0-50); AST (SGOT) 18 U/L (17-59); Albumin 4.1 g/dl (3.5-5.0); Alkaline Phosphatase 53 U/L (38-126); Blood Urea Nitrogen 19 mg/dl (9-20); Calcium 9.7 mg/dl (8.4-10.2); Carbon Dioxide 27 mmol/L (22-30); Chloride 108 mmol/L (98-107); Estimated Creatinine Clearance 94 ml/min; Glucose 111 mg/dl (70-99); Potassium 3.7 mmol/L (3.5-5.1); Sodium 146 mmol/L (135-145); Total Bilirubin 0.8 mg/dl (0.2-1.3); Total Protein 6.9 g/dl (6.3-8.2); eGFR > 60.00
--- NOTE | 2025-01-01 11:27 | ED.GENMED ---
History of Present Illness
General
Chief Complaint: Weakness
Time Seen by Provider: 01/01/25 10:34
History of Present Illness
History of Present Illness:
74-year-old male with history of CAD asthma, CHF, hypertension, diabetes, history of CVA with chronic visual issues presenting for generalized weakness. Patient notes that he recently had blood work done, came back abnormal with high cholesterol
and high glucose. In discussion with his primary care doctor, was advised to come to the hospital. Patient arrives with notes that he has been generally weak for the past few months. On 26 December, patient slid from the couch to the ground and
had difficulty getting up. He is walking around his house with a walker, slowly. No report of any recent head trauma. Patient himself notes some generalized weakness and dizziness. Denies chest pain, difficulty breathing, abdominal pain, fever.
Denies numbness or tingling to his extremities. Denies additional acute medical complaints
Past History
Past History
ED Past Medical History: CAD, CVA, GERD, Hypercholesterolemia, IDDM, [place] and Other (spinal stenosis, Vertigo, PNA)
ED Past Surgical History: Cardiac (Stents X 2); Negative Bowel resection (denies a bowel resection or 25' being removed. said that this did not happen)
Social History
Tobacco: Former smoker
Alcohol: None
Drug: None
Personal:
Living: with family
Phy Exam
Physical Exam
Physical Exam:
General: Well-appearing, no clinical signs of dehydration, nontoxic and in no acute distress
HEENT: protecting airway
Neck: appears supple
CV: Normal heart rate, regular rhythm
Resp: No accessory muscle use, no increased work of breathing, lungs clear to auscultation bilaterally
Abd: Soft and non-distended, no tenderness to palpation
Extremities: No deformities, no swelling, no erythema
Neuro: alert, no focal neurologic deficit
: deferred
Rectal: deferred
Psych: Normal affect
Skin: Intact
Course
Orders/Labs/Results
Orders:
Orders
01/01/25 10:56
Electrocardiogram (*1) Stat
Reason for Study: Abdominal Pain
CT Head W/o Iv Contrast Urgent
Comment:
Reason For Exam: generalized weakness, hx cva
EKG- Treatment ONCE
01/01/25 11:00
Complete Blood Count/With Diff Urgent
Comprehensive Metabolic Panel Urgent
Troponin I Urgent
01/01/25 11:21
EKG- Treatment ONCE
01/01/25 12:09
Urinalysis Reflex To Culture Urgent
Date Specimen was Collected: 01/01/25
Time Specimen was Collected: 10:59
Urine Microscopic Reflex Cult Urgent
Urine Culture Urgent
JUAN M Source: U
Specimen Description:
Date Specimen was Collected: 01/01/25
Time Specimen was Collected: 10:59
Abnormal Lab Results
01/01/25 01/01/25
11:00 12:09
Sodium 146 H mmol/L
(135-145)
Chloride 108 H mmol/L
(98-107)
Glucose 111 H mg/dl
(70-99)
Leukocyte Esterase Rfl 2+ A
(Negative)
Urine RBC 3-6 A /HPF
(0-2)
Urine Bacteria (Reflex) Moderate A
(Negative)
Urine Yeast Few A
(Negative)
Urine Glucose 4+ A
(Negative)
Urine Albumin (Reflex) 2+ A
(Neg - Trace)
01/01/25 11:00
01/01/25 11:00
Vital Signs
Initial and Last Documented VS:
Initial Vital Signs
Temp Pulse Resp BP Pulse Ox
98.5 F 79 20 128/80 95
01/01/25 10:37 01/01/25 10:37 01/01/25 10:37 01/01/25 10:37 01/01/25 10:37
Last Documented Vital Signs
Temp Pulse Resp BP Pulse Ox
98.5 F 78 16 115/62 95
01/01/25 10:37 01/01/25 13:00 01/01/25 13:00 01/01/25 13:00 01/01/25 13:00
MDM/Problems Addressed
MDM/Problems Addressed:
74-year-old male with history of CAD asthma, CHF, hypertension, diabetes, history of CVA with chronic visual issues presenting for generalized weakness and abnormal outpatient labs. Vital signs on arrival are normal.
On exam, patient is resting comfortably, no acute distress or discomfort. Patient himself denies any acute complaints, however does note that he has been feeling generally weak for the past several weeks, and most recently had an issue getting up
from the ground on the . Patient does arrive with abnormal lab test, high cholesterol, however underlying history. Checked his cholesterol is contributing to the weakness. Additionally on review of EMR, patient came to the hospital in the
beginning of November for generalized weakness, unremarkable workup at that time. They thought that maybe at that time it was from his spironolactone. Will plan for laboratory analysis and CT head imaging given history of stroke.
13:30 -CT without any acute findings. Labs are unremarkable. Urine does show some bacteria, however patient is denying any acute urinary complaints. Lower suspicion for UTI. Given duration of symptoms, do not suspect any acute pathology at this
time with unremarkable workup. Advised potential physical therapy. notes that they are already hooked up with a physical therapist who is supposed to come to the house today. Advised close outpatient primary care follow-up and advised
compliance with walker. Return precautions discussed with patient and at bedside who verbalized understanding
*EKG
Interpreted by ED Provider?: Yes
EKG Intrepretation Date: 01/01/25
EKG Intrepretation Time: 13:34
Interpretation: normal
Comparison EKG: no changes (12/15/24)
Heart Rate: 80
Rate: normal
Rhythm: sinus and PVC's
[place]: normal axis
Interval: normal interval
QRS Pattern: normal QRS
Ischemia: no ischemia
*Critical Care Note
Total Time (30-74mins, 75-104mins- exclusive of procedures): Not Applicable
ED Attending Note
-
Portions of this chart may have been created with voice recognition software.� Occasional wrong word or��sound alike� substitutions may have occurred due to the inherent limitations of voice recognition software.
Discharge Plan
Departure
Prescriptions:
No Action
cholecalciferol (vitamin D3) [Vitamin D3] 50 mcg (2,000 unit) Tablet
2,000 unit PO DAILY
icosapent ethyl [Vascepa] 1 gram Capsule
1 g PO BID
atorvastatin 80 mg tablet
80 mg PO HS
aspirin 81 MG tablet,chewable
81 mg PO DAILY
albuterol sulfate [ProAir HFA] 90 mcg/actuation Hfa Aerosol Inhaler
2 puff INHALATION R QIDPRN PRN (Reason: sob)
fluticasone propion-salmeterol [Advair HFA] 230-21 mcg/actuation Hfa Aerosol Inhaler
2 puff INHALATION R BID
insulin lispro [Humalog U-100 Insulin] 100 unit/mL solution
25 unit SC AC
Incruse Ellipta 62.5 mcg/actuation Blister With Device
1 inh INHALATION DAILY
Nucala 100 mg Recon Soln
300 mg SC Q4W
pantoprazole 40 mg Tablet,Delayed Release (Dr/Ec)
40 mg PO DAILY
insulin degludec [Tresiba U-100 Insulin] 100 unit/mL Solution
80 unit SC HS
spironolactone 25 mg tablet
25 mg PO DAILY Qty: 90 5RF
Referrals:
Valencia Pablo, [Family Provider] -
Interventions
Interventions:
*Risk Screen - Suicide Last Done: 01/01/25 10:37
*General Assessment Last Done: 01/01/25 10:37
*Neglect/Abuse Screening Last Done: 01/01/25 10:37
*ED- Fall Risk Assessment Last Done: 01/01/25 10:37
*ED COVID-19 Vaccine History Last Done: 01/01/25 10:37
ED- Cardiac Assessment Last Done: 01/01/25 11:44
ED- Neurological Assessment Last Done: 01/01/25 11:44
ED- Pulmonary Assessment Last Done: 01/01/25 11:44
Discharge Date and Time
Print Language: WELSH
[2025-01-01 11:30] LABS: % Basophils 0.1 % (0-2); % Eosinophils 1.6 % (0-6); % Immature Granulocytes 0.3 % (0-0.5); % Lymphocytes 28.9 % (20.5-51.1); % Neutrophils 63.1 % (42.2-75.2); Absolute Eosinophils 0.1 10^3/uL (0-0.7); Absolute Lymphocytes 2.6 10^3/uL (1.2-3.4); Absolute Monocytes 0.5 10^3/uL (0.1-0.6); Absolute Neutrophils 5.6 10^3/uL (1.4-6.5); Hematocrit 46.2 % (39.0-52.0); Mean Corp Hgb Conc. 34.6 g/dL (33.0-37.0); Mean Corpuscular Hgb 29.6 pg (27.0-31.0); Mean Corpuscular Volume 85.4 fL (80.0-94.0); Mean Platelet Volume 10.2 fL (7.4-10.4); Nucleated Red Blood Cells % 0 % (-); Platelet Count 222 10^3/uL (130-400); Red Blood Cell Count 5.41 10^6/uL (4.70-6.10); Red Cell Dist. Width 13.5 % (11.5-14.5); White Blood Cell Count 8.9 10^3/uL (4.8-10.8)
[2025-01-01 12:09] VITALS: BP 121/66
[2025-01-01 12:21] LABS: Troponin I < 0.012 ng/ml
[2025-01-01 12:27] LABS: Urine Albumin 2+ (Neg - Trace); Urine Bilirubin Negative (Negative); Urine Character Clear (Clear); Urine Color Yellow; Urine Glucose 4+ (Negative); Urine Ketone Negative (Negative); Urine Leukocyte 2+ (Negative); Urine Nitrite Negative (Negative); Urine Occult Blood Negative (Negative); Urine Urobilinogen 1+ (Neg - 1+)
[2025-01-01 12:36] LABS: Urine Mucus Moderate; Urine Squamous Cell 26-30 /LPF (Few)
[2025-01-01 12:45] LABS: Urine Bacteria Moderate (Negative); Urine Yeast Few (Negative)
[2025-01-01 13:00] VITALS: BP 115/62
[2025-01-01 14:00] VITALS: BP 120/86
== END 2025-01-01 14:54 | disposition home or self-care (01) ==
LOC: EMR 10:24
PROVIDERS: EMERGENCY PHYSICIAN Student in an Organized Health Care Education/Training Program; FAMILY PHYSICIAN Family Medicine
DX: R53.1 Weakness (principal); R79.89 Other specified abnormal findings of blood chemistry; I25.10 Atherosclerotic heart disease of native coronary artery without angina pectoris; I11.0 Hypertensive heart disease with heart failure; I50.9 Heart failure, unspecified; E11.9 Type 2 diabetes mellitus without complications; K21.9 Gastro-esophageal reflux disease without esophagitis; M48.00 Spinal stenosis, site unspecified; E78.00 Pure hypercholesterolemia, unspecified; J45.909 Unspecified asthma, uncomplicated; I25.2 Old myocardial infarction; Z79.4 Long term (current) use of insulin; Z79.82 Long term (current) use of aspirin; Z95.5 Presence of coronary angioplasty implant and graft; Z87.01 Personal history of pneumonia (recurrent); Z86.73 Personal history of transient ischemic attack (TIA), and cerebral infarction without residual deficits; Z87.891 Personal history of nicotine dependence; Z88.1 Allergy status to other antibiotic agents; Z91.011 Allergy to milk products; Z88.8 Allergy status to other drugs, medicaments and biological substances; Z91.018 Allergy to other foods
CPT/HCPCS: 99284; 70450; 80053; 81003; 81015; 84484; 85025; 87086; 93005

== ENCOUNTER 2025-01-28 13:35 | Outpatient (RCR) | payer OTHER, SELFPAY ==
[2025-01-28 14:02] VITALS: BP 100/55
[2025-01-28] MEDS: NUCALA 1 MG SC (14:13)
== END 2025-01-29 09:18 | disposition home or self-care (01) ==
LOC: OID 13:35
PROVIDERS: ATTENDING PHYSICIAN Nurse Practitioner Adult Health; FAMILY PHYSICIAN Family Medicine; PRIMARYCARE PHYSICIAN Family Medicine
DX: J45.50 Severe persistent asthma, uncomplicated (principal); J44.89 Other specified chronic obstructive pulmonary disease; D72.10 Eosinophilia, unspecified; Z87.891 Personal history of nicotine dependence
CPT/HCPCS: 96372; J2182

== ENCOUNTER → 2025-02-20 13:33 | Outpatient (REF) | payer MEDICARE, SELFPAY | LOC: RAD 13:33 | PROVIDERS: ATTENDING PHYSICIAN Nurse Practitioner Family; FAMILY PHYSICIAN Family Medicine; REFERRING PHYSICIAN Internal Medicine Critical Care Medicine | DX: I65.22 Occlusion and stenosis of left carotid artery (principal); Z87.891 Personal history of nicotine dependence | CPT/HCPCS: 71271; 93880 ==

== ENCOUNTER 2025-02-25 13:34 | Outpatient (RCR) | payer MEDICARE, SELFPAY ==
[2025-02-25 13:57] VITALS: BP 129/71
[2025-02-25] MEDS: NUCALA 1 MG SC (14:05)
== END 2025-02-26 08:32 | disposition home or self-care (01) ==
LOC: OID 13:34
PROVIDERS: ATTENDING PHYSICIAN Nurse Practitioner Adult Health; FAMILY PHYSICIAN Family Medicine; PRIMARYCARE PHYSICIAN Family Medicine
DX: J45.50 Severe persistent asthma, uncomplicated (principal); J44.9 Chronic obstructive pulmonary disease, unspecified; D72.10 Eosinophilia, unspecified; Z87.891 Personal history of nicotine dependence
CPT/HCPCS: 96372; J2182

== ENCOUNTER 2025-03-25 13:24 | Outpatient (RCR) | payer MEDICARE, SELFPAY ==
[2025-03-25 14:02] VITALS: BP 99/57
[2025-03-25] MEDS: NUCALA 1 MG SC (14:16)
== END 2025-03-26 09:53 | disposition home or self-care (01) ==
LOC: OID 13:24
PROVIDERS: ATTENDING PHYSICIAN Nurse Practitioner Adult Health; FAMILY PHYSICIAN Family Medicine; PRIMARYCARE PHYSICIAN Family Medicine
DX: J45.50 Severe persistent asthma, uncomplicated (principal); J44.9 Chronic obstructive pulmonary disease, unspecified; D72.10 Eosinophilia, unspecified; Z87.891 Personal history of nicotine dependence
CPT/HCPCS: 96372; J2182

== ENCOUNTER 2025-04-22 13:26 | Outpatient (RCR) | payer MEDICARE, SELFPAY ==
[2025-04-22 13:54] VITALS: BP 92/63
[2025-04-22] MEDS: NUCALA 1 MG SC (14:07)
== END 2025-04-23 09:03 | disposition home or self-care (01) ==
LOC: OID 13:26
PROVIDERS: ATTENDING PHYSICIAN Nurse Practitioner Adult Health; FAMILY PHYSICIAN Family Medicine; PRIMARYCARE PHYSICIAN Family Medicine
DX: J45.50 Severe persistent asthma, uncomplicated (principal); J44.9 Chronic obstructive pulmonary disease, unspecified; D72.10 Eosinophilia, unspecified; Z87.891 Personal history of nicotine dependence
CPT/HCPCS: 96372; J2182

== ENCOUNTER 2025-05-02 11:44 | Emergency (ER) | payer MEDICARE, OTHER, SELFPAY ==
[2025-05-02 11:50] VITALS: BP 110/59
[2025-05-02 12:00] VITALS: BP 97/63
--- NOTE | 2025-05-02 12:08 | ED.GENMED ---
History of Present Illness
General
Chief Complaint: Chest Pain
Source: patient
Time Seen by Provider: 05/02/25 12:06
History of Present Illness
History of Present Illness:
74-year-old male presents the emergency room complaint of chest pain. Pain has been present for about the past day. Nothing seems to make it better or worse. He does have a cardiac history with 2 stents in 2022. He also has a history of COPD and
asthma. No fever, chills, cough. Patient denies any pain with deep inspiration.
Past History
Past History
ED Past Medical History: CAD, CVA, GERD, Hypercholesterolemia, IDDM, [place] and Other (spinal stenosis, Vertigo, PNA)
ED Past Surgical History: Cardiac (Stents X 2); Negative Bowel resection (denies a bowel resection or 25' being removed. said that this did not happen)
Social History
Tobacco: Former smoker
Alcohol: None
Drug: None
Personal:
Living: with family
Phy Exam
Physical Exam
Physical Exam:
General: Awake, Alert, Oriented X3. No acute distress.
Vitals: unremarkable
Head: Atraumatic
Eyes: Pupils equal, EOMI
Throat: Airway intact, no exudates
Neck: Trachea midline
Lungs: Clear and equal b/l
Heart: Regular rate, no murmurs
Abd: Soft, Nontender, No pulsatile mass
Neuro: Nonfocal
Skin: Warm, dry, no rash
Extremities: pulses equal b/l, no edema
Scores
Heart Score for Chest Pain Patients
STEMI patient?: No
History: Slightly or Non-Suspicious
ECG: Normal
Age: >/= 65 years
Risk Factors: >/= 3 Risk Factors or History of CAD
Troponin: </= Normal Limit
Heart Score for Chest Pain Patients: 4
Heart Score Risk: 20.3% MACE over next 6 weeks
Course
Orders/Labs/Results
Orders:
Orders
05/02/25
Electrocardiogram (*1) Stat
Comment: DONE EMR
05/02/25 11:47
Electrocardiogram (*1) Urgent
Reason for Study: Chest Pain
Cardiac Monitoring- Treatment ONCE
EKG- Treatment ONCE
IV Insert/Care/Rem.- Treatment PRN
O2 Therapy [RESP] Urgent
Titrate/Wean O2 to maintain O2 sat greater than (%): 90
Special Instructions: Maintain sats >/=90%
Pulse Ox/spot Check [RESP] Urgent
Quantity: 1
Special Instructions: ON ROOM AIR
05/02/25 11:59
Complete Blood Count/With Diff Urgent
Comprehensive Metabolic Panel Urgent
Troponin I Urgent
05/02/25 12:01
COVID-19 Antigen Urgent
Source: Nasal Swab
Influenza A+B Rapid Molecular Urgent
JUAN M Source: Nasal Swab
Specimen Description:
05/02/25 12:22
Ipratropium/Albuterol Sulfate [Duoneb] 3 ml INH R NOW STA
CR Chest - 2 Views Urgent
Comment:
Reason For Exam: chest pain
05/02/25 14:10
Troponin I Urgent
05/02/25 15:32
Ipratropium/Albuterol Sulfate [Duoneb] 3 ml INH R NOW STA
Prednisone [Deltasone] 50 mg PO NOW STA
Abnormal Lab Results
05/02/25
11:59
MPV 10.6 H fL
(7.4-10.4)
Absolute Monos (auto) 0.7 H 10^3/uL
(0.1-0.6)
Chloride 108 H mmol/L
(98-107)
BUN 23 H mg/dl
(9-20)
Glucose 131 H mg/dl
(70-99)
05/02/25 11:59
05/02/25 11:59
Vital Signs
Initial and Last Documented VS:
Initial Vital Signs
Temp Pulse Resp BP Pulse Ox
97.8 F 74 20 110/59 94
05/02/25 11:50 05/02/25 11:50 05/02/25 11:50 05/02/25 11:50 05/02/25 11:50
Last Documented Vital Signs
Temp Pulse Resp BP Pulse Ox
97.8 F 70 19 99/58 91
05/02/25 11:50 05/02/25 15:45 05/02/25 15:45 05/02/25 15:06 05/02/25 15:45
MDM/Problems Addressed
Differential Diagnosis Includes:
NSTEMI, angina, chest pressure from asthma/bronchospasm
MDM/Problems Addressed:
Patient presents with chest tightness. EKG shows no acute ischemic changes. Troponins negative x 2. Patient has wheezing on exam. He was treated with nebs and this improved his symptoms somewhat. Will discharge him on steroids have him continue
beta agonist.
*Radiology
Radiology exam reviewed: radiology read reviewed
*Pulse Oximetry
SaO2: 94
Oxygen Mode of Delivery: Room air
Patient hypoxic: no
*EKG
Interpreted by ED Provider?: Yes
Comparison EKG: no changes
Heart Rate: 74
Rate: normal
Rhythm: sinus and PVC's
[place]: normal axis
Interval: normal interval
QRS Pattern: normal QRS
Ischemia: non-specific ST changes
*[employer] Interpretation
Rate: normal
Interpretation: abnormal
Heart Rate: 74
Rhythm: sinus and PVC's
*Critical Care Note
Total Time (30-74mins, 75-104mins- exclusive of procedures): Not Applicable
ED Attending Note
-
Portions of this chart may have been created with voice recognition software.� Occasional wrong word or��sound alike� substitutions may have occurred due to the inherent limitations of voice recognition software.
Discharge Plan
Departure
Patient Disposition: Home (Routine Discharge)
Date of Disposition: 05/02/25
Time of Disposition: 16:16
Patient with high blood pressure during this ER visit?: No
Condition: Good
Discharge Problem:
Chest tightness, Asthma exacerbation
Instructions: Asthma in adults - ED (DC)
Prescriptions:
New
prednisone 20 mg tablet
40 mg PO DAILY Qty: 8 0RF
No Action
cholecalciferol (vitamin D3) [Vitamin D3] 50 mcg (2,000 unit) Tablet
2,000 unit PO DAILY
icosapent ethyl [Vascepa] 1 gram Capsule
2 g PO BID
atorvastatin 80 mg tablet
80 mg PO HS
aspirin 81 MG tablet,chewable
81 mg PO DAILY
albuterol sulfate [ProAir HFA] 90 mcg/actuation Hfa Aerosol Inhaler
2 puff INHALATION R QIDPRN PRN (Reason: sob)
fluticasone propion-salmeterol [Advair HFA] 230-21 mcg/actuation Hfa Aerosol Inhaler
2 puff INHALATION R BID
Incruse Ellipta 62.5 mcg/actuation Blister With Device
1 inh INHALATION DAILY
Nucala 100 mg Recon Soln
300 mg SC Q4W
pantoprazole 40 mg Tablet,Delayed Release (Dr/Ec)
40 mg PO DAILY
metoprolol succinate 25 mg Tablet Extended Release 24 Hr
25 mg PO DAILY
ezetimibe 10 mg Tablet
10 mg PO HS
insulin aspart U-100 [Novolog U-100 Insulin aspart] 100 unit/mL Solution
1 sliding scale dose SC DIRECTED
Patient Comments:
Insulin pump
mecobalamin (vitamin B12) [B12 Active] 1,000 mcg Tablet,Chewable
1,000 mcg PO DAILY
losartan 25 mg Tablet
25 mg PO DAILY
Referrals:
UNKNOWN - PT NOT,INTERVIEWE [Unknown Provider]
Interventions
Interventions:
*Risk Screen - Suicide Last Done: 05/02/25 11:55
*General Assessment Last Done: 05/02/25 11:55
*Neglect/Abuse Screening Last Done: 05/02/25 11:55
*ED- Fall Risk Assessment Last Done: 05/02/25 11:55
*ED COVID-19 Vaccine History Last Done: 05/02/25 11:55
ED- Cardiac Assessment Last Done: 05/02/25 11:53
Discharge Date and Time
Print Language: MOSOT[place]
[2025-05-02 12:14] LABS: Hematocrit 43.5 % (39.0-52.0); Hemoglobin 14.5 g/dL (13.0-18.0); Mean Corp Hgb Conc. 33.3 g/dL (33.0-37.0); Mean Corpuscular Volume 85.8 fL (80.0-94.0); Nucleated Red Blood Cells % 0 % (-); Platelet Count 210 10^3/uL (130-400); Red Cell Dist. Width 13.8 % (11.5-14.5)
[2025-05-02] MEDS: DUONEB 3 ML INH ×2 (12:26→15:48)
[2025-05-02 12:27] LABS: COVID-19 Antigen Negative (Negative)
[2025-05-02 12:31] LABS: ALT (SGPT) 31 U/L (0-50); AST (SGOT) 21 U/L (17-59); Albumin 4.2 g/dl (3.5-5.0); Alkaline Phosphatase 56 U/L (38-126); Blood Urea Nitrogen 23 mg/dl (9-20); Calcium 9.1 mg/dl (8.4-10.2); Carbon Dioxide 27 mmol/L (22-30); Chloride 108 mmol/L (98-107); Glucose 131 mg/dl (70-99); Potassium 4.4 mmol/L (3.5-5.1); Sodium 142 mmol/L (135-145); Total Protein 6.9 g/dl (6.3-8.2); eGFR 58.37
[2025-05-02 12:43] LABS: Troponin I 0.024 ng/ml
[2025-05-02 13:23] VITALS: BP 107/51
[2025-05-02 14:06] VITALS: BP 105/77
[2025-05-02 15:06] VITALS: BP 99/58
[2025-05-02 15:45] LABS: Troponin I 0.021 ng/ml
[2025-05-02] MEDS: DELTASONE 50 MG PO (15:47)
== END 2025-05-02 16:45 | disposition home or self-care (01) ==
LOC: EMR 11:44
PROVIDERS: Emergency Medicine; EMERGENCY PHYSICIAN Emergency Medicine; FAMILY PHYSICIAN Family Medicine
DX: J44.9 Chronic obstructive pulmonary disease, unspecified (principal); J45.901 Unspecified asthma with (acute) exacerbation; I49.3 Ventricular premature depolarization; E10.9 Type 1 diabetes mellitus without complications; I25.10 Atherosclerotic heart disease of native coronary artery without angina pectoris; E78.00 Pure hypercholesterolemia, unspecified; I25.2 Old myocardial infarction; K21.9 Gastro-esophageal reflux disease without esophagitis; M48.00 Spinal stenosis, site unspecified; Z79.82 Long term (current) use of aspirin; Z79.4 Long term (current) use of insulin; Z95.5 Presence of coronary angioplasty implant and graft; Z86.73 Personal history of transient ischemic attack (TIA), and cerebral infarction without residual deficits; Z87.891 Personal history of nicotine dependence
CPT/HCPCS: 99284; 94640; 71046; 80053; 84484; 85025; 87502; 87811; 93005

== ENCOUNTER 2025-05-20 13:24 | Outpatient (RCR) | payer MEDICARE, OTHER, SELFPAY ==
[2025-05-20 13:54] VITALS: BP 96/64
[2025-05-20] MEDS: NUCALA 1 MG SC (14:08)
== END 2025-05-21 10:03 | disposition home or self-care (01) ==
LOC: OID 13:24
PROVIDERS: ATTENDING PHYSICIAN Nurse Practitioner Adult Health; FAMILY PHYSICIAN Family Medicine; PRIMARYCARE PHYSICIAN Family Medicine
DX: J45.50 Severe persistent asthma, uncomplicated (principal); J44.9 Chronic obstructive pulmonary disease, unspecified; D72.10 Eosinophilia, unspecified; Z87.891 Personal history of nicotine dependence
CPT/HCPCS: 96372; J2182

== ENCOUNTER 2025-06-17 13:29 | Outpatient (RCR) | payer MEDICARE, OTHER, SELFPAY ==
[2025-06-17 13:45] VITALS: BP 114/60
[2025-06-17] MEDS: NUCALA 1 MG SC (14:00)
== END 2025-06-18 09:17 | disposition home or self-care (01) ==
LOC: OID 13:29
PROVIDERS: ATTENDING PHYSICIAN Nurse Practitioner Adult Health; FAMILY PHYSICIAN Family Medicine; PRIMARYCARE PHYSICIAN Family Medicine
DX: J45.50 Severe persistent asthma, uncomplicated (principal); J44.9 Chronic obstructive pulmonary disease, unspecified; D72.10 Eosinophilia, unspecified; Z87.891 Personal history of nicotine dependence
CPT/HCPCS: 96372; J2182

== ENCOUNTER 2025-07-15 13:28 | Outpatient (RCR) | payer MEDICARE, OTHER, SELFPAY ==
[2025-07-15] MEDS: NUCALA 1 MG SC (14:12)
[2025-07-15 14:24] VITALS: BP 97/44
== END 2025-07-16 09:44 | disposition home or self-care (01) ==
LOC: OID 13:28
PROVIDERS: ATTENDING PHYSICIAN Nurse Practitioner Adult Health; FAMILY PHYSICIAN Family Medicine; PRIMARYCARE PHYSICIAN Family Medicine
DX: J45.50 Severe persistent asthma, uncomplicated (principal); J44.9 Chronic obstructive pulmonary disease, unspecified; D72.10 Eosinophilia, unspecified; Z87.891 Personal history of nicotine dependence
CPT/HCPCS: 96372; J2182

== ENCOUNTER 2025-09-09 13:27 | Outpatient (RCR) | payer MEDICARE, OTHER, SELFPAY ==
[2025-08-12 14:13] VITALS: BP 113/57
[2025-08-12] MEDS: NUCALA 1 MG SC (14:20)
[2025-09-09 14:15] VITALS: BP 117/48
[2025-09-09] MEDS: NUCALA 1 MG SC (14:18)
== END 2025-09-11 23:59 | disposition home or self-care (01) ==
LOC: OID 13:27
PROVIDERS: ATTENDING PHYSICIAN Nurse Practitioner Adult Health; FAMILY PHYSICIAN Family Medicine; PRIMARYCARE PHYSICIAN Family Medicine
DX: J45.50 Severe persistent asthma, uncomplicated (principal); J44.9 Chronic obstructive pulmonary disease, unspecified; D72.10 Eosinophilia, unspecified; Z87.891 Personal history of nicotine dependence
CPT/HCPCS: 96372; J2182